=== PATIENT | male | born 1940 | race Caucasian/White ===

== ENCOUNTER 2020-08-31 02:44 | Outpatient (CLI) | payer MEDICARE, SELFPAY ==
[2020-08-31 18:02] LABS: SARS-CoV-2 RNA PCR Negative
== END 2020-08-31 02:45 | disposition home or self-care (01) ==
LOC: ANHCOVIDDT 02:44
PROVIDERS: PCP Family Medicine; Visit Provider Internal Medicine Gastroenterology
DX: Z01.812 Encounter for preprocedural laboratory examination (principal); Z20.828 Contact with and (suspected) exposure to other viral communicable diseases
CPT/HCPCS: 87635; C9803; U0003

== ENCOUNTER 2020-09-03 01:45 | Day surgery (SDC) | payer MEDICARE, SELFPAY ==
[2020-08-23 10:20] VITALS: BMI 25.9
[2020-09-03 12:02] VITALS: BP 140/75; PULSE 56; RESP 14; TEMP 36.3; O2SAT 98
[2020-09-03] MEDS: LACTATED RINGERS 1,000 ML 150 ML IV CONT (12:04)
--- NOTE | 2020-09-03 12:15 | PM.IMHP ---
H&P: HPI History of Present Illness Date/Time: 09/03/20 12:15 Chief complaint: constipation Narrative: Reason for visit is colonoscopy. This very pleasant gentleman is being evaluated at the request of the primary physician. Impression: Her very pleasant gentleman with a history adenomatous colon polyps. He has been having loose stools. Underlying inflammatory neoplastic disease should be excluded. This may be functional in nature. HTN. HLD. GERD with occasional breakthrough symptoms. Skin cancer. Recommendation: Colonoscopy. History: This very pleasant gentleman is here for colonoscopy. He has a history adenomatous colon polyps and reflux disease. He has occasional breakthrough symptoms of reflux. He has been having loose stools pre may go 2-3 times per day and occasionally that currently. Hematochezia, melena acholic stools at night. He does not report any significant weight loss. Complains of diffuse abdominal tenderness. He is here for colonoscopy to assess for inflammatory neoplastic disease. Physical examination: General: very pleasant patient in no acute distress. HEENT: Head was normocephalic sclerae is clear mouth without masses neck was supple. Heart: Rate rhythm regular without S3 or S4. Lungs: CTA. Abdomen: Soft with no guarding or rigidity. Bowel sounds were active. Neurologic: Cranial nerves 2 through 12 intact. No focal defects. No clonus. Musculoskeletal system: Revealed no joint tenderness or swelling no muscle atrophy. Extremities: Reveal no significant edema. Skin: Warm and dry with normal turgor. Mental status: intact. Patient is alert and oriented. Review of Systems Review of Systems: All systems reviewed & are unremarkable except as noted in HPI and below PMFSH Past Medical History Medical History (Updated 05/10/20 @ 10:02 by Trung Claros DO) SANCHEZ (dyspnea on exertion) Dyslipidemia Dysuria History of hydrocele Right axillary hidradenitis Syncope and collapse Ventricular ectopics Surgical History Surgical History History of back surgery History of carpal tunnel release Family History Family History Mother Hypertension Family history of arthritis Father Family history of dementia Malignant neoplasm of prostate Social History Social History Smoking status: Never smoker Second hand tobacco smoke exposure: No Smoking end date: 11/02/1961 Alcohol intake: current Substance use: never Substance use type: does not use Living arrangements: with family Gender identity (if verbalized by the patient): Male Spiritual care concerns: No Meds Home Medications and Allergies Home Medications Medication Instructions Recorded Confirmed Type acetaminophen 650 mg 650 mg PO BID 11/08/19 08/23/20 History tablet,extended release avanafil 200 mg tablet 200 mg PO WEEKLY 11/08/19 08/23/20 History cholecalciferol (vitamin D3) 125 125 mcg PO DAILY 11/08/19 08/23/20 History mcg (5,000 unit) capsule esomeprazole magnesium 20 mg 20 mg PO DAILY 11/08/19 08/23/20 History capsule,delayed release multivitamin 1 tablet PO DAILY 11/08/19 08/23/20 History omega-3 fatty acids 1,000 mg 1,000 mg PO BID 11/08/19 08/23/20 History capsule quinapril 20 mg tablet 20 mg PO BID 11/08/19 08/23/20 History Bystolic 20 mg PO DAILY 08/23/20 08/23/20 History L. gasseri-B. bifidum-B longum 1 cap PO DAILY 08/23/20 08/23/20 History [Probiotic Colon Care] amlodipine 2.5 mg PO DAILY 08/23/20 08/23/20 History coenzyme Q10 200 mg PO DAILY 08/23/20 08/23/20 History cyclosporine [Restasis] 1 drp OPHTHALMIC (EYE) BID 08/23/20 08/23/20 History fluticasone propionate 1 spray NASAL BID 08/23/20 08/23/20 History vit C-vit Q-drhozq-dfy-om-3 1 cap PO DAILY 08/23/20 08/23/20 History [Ocuvite]
--- NOTE | 2020-09-03 12:20 | WPDANESEPPF ---
Anes - Initial Pre Proc Eval Procedure: Operation Date: 09/03/20 13:30 Proposed Procedures p Colonoscopy - Erick Santos DO Date/Time: 09/03/20 12:20 Surgeon: Erick Santos DO Pre Op Diagnosis: constipation Patient Data Age: 79 Gender: M Height: 1.68 m Weight: 71.7 kg Last Vital Signs Temp 36.3 C L 09/03/20 12:02 Pulse 56 L 09/03/20 12:02 Resp 14 09/03/20 12:02 BP 140/75 09/03/20 12:02 Pulse Ox 98 09/03/20 12:02 Allergies Allergy/AdvReac Type Severity Reaction Status Date / Time Bumble Bee Allergy Intermediate Swelling Uncoded 08/23/20 10:13 Home Medications Medication Instructions Recorded Confirmed Type acetaminophen 650 mg 650 mg PO BID 11/08/19 08/23/20 History tablet,extended release avanafil 200 mg tablet 200 mg PO WEEKLY 11/08/19 08/23/20 History cholecalciferol (vitamin D3) 125 125 mcg PO DAILY 11/08/19 08/23/20 History mcg (5,000 unit) capsule esomeprazole magnesium 20 mg 20 mg PO DAILY 11/08/19 08/23/20 History capsule,delayed release multivitamin 1 tablet PO DAILY 11/08/19 08/23/20 History omega-3 fatty acids 1,000 mg 1,000 mg PO BID 11/08/19 08/23/20 History capsule quinapril 20 mg tablet 20 mg PO BID 11/08/19 08/23/20 History Bystolic 20 mg PO DAILY 08/23/20 08/23/20 History L. gasseri-B. bifidum-B longum 1 cap PO DAILY 08/23/20 08/23/20 History [Probiotic Colon Care] amlodipine 2.5 mg PO DAILY 08/23/20 08/23/20 History coenzyme Q10 200 mg PO DAILY 08/23/20 08/23/20 History cyclosporine [Restasis] 1 drp OPHTHALMIC (EYE) BID 08/23/20 08/23/20 History fluticasone propionate 1 spray NASAL BID 08/23/20 08/23/20 History vit C-vit Z-pdrzxe-kgb-om-3 1 cap PO DAILY 08/23/20 08/23/20 History [Ocuvite] Patient hx anesthesia problems: none Family hx anesthesia problems: none PMFSH Past Medical History Medical History (Updated 09/03/20 @ 12:21 by Tej Burnett MD) CKD (chronic kidney disease) stage 3, GFR 30-59 ml/min SANCHEZ (dyspnea on exertion) Dyslipidemia Dysuria History of hydrocele Hypertension Right axillary hidradenitis Syncope and collapse Ventricular ectopics Surgical History Surgical History History of back surgery History of carpal tunnel release Family History Family History Mother Hypertension Family history of arthritis Father Family history of dementia Malignant neoplasm of prostate Social History Social History Smoking status: Never smoker Second hand tobacco smoke exposure: No Smoking end date: 11/02/1961 Alcohol intake: current Substance use: never Substance use type: does not use Living arrangements: with family Gender identity (if verbalized by the patient): Male Spiritual care concerns: No Anes - Eval Final PreProcedure Day of Procedure 09/03/20 12:20 Patient weight: overweight Heart: regular rate and rhythm Lungs: clear to auscultation and normal air movement Airway: Mallampati scale class II Neurological: alert and oriented Last oral intake: >/= 8 hours ASA classification: III Emergent: no Anesthetic plan: proceed Anesthesia type and monitoring: general GIVS Informed Consent: The patient's anesthetic plan and its attendant risks and benefits were discussed with the patient/family/POA. Questions were solicited and answers provided to the satisfaction of the patient/family/POA.
[2020-09-03 13:27] VITALS: BP 99/76; PULSE 58; RESP 18; O2SAT 95
[2020-09-03 13:37] VITALS: BP 112/88; PULSE 59; RESP 23; O2SAT 96
[2020-09-03 13:47] VITALS: BP 103/61; PULSE 55; RESP 18; O2SAT 96
== END 2020-09-03 13:57 | disposition home or self-care (01) ==
PROVIDERS: PCP Family Medicine; Visit Provider Internal Medicine Gastroenterology
PROC: 0DJD8ZZ Inspection of Lower Intestinal Tract, Via Natural or Artificial Opening Endoscopic (ICD-10-PCS; CPT 45378; principal; 2020-09-03 13:30)
DX: R19.4 Change in bowel habit (principal); D12.2 Benign neoplasm of ascending colon; K51.40 Inflammatory polyps of colon without complications; K57.30 Diverticulosis of large intestine without perforation or abscess without bleeding; K21.9 Gastro-esophageal reflux disease without esophagitis; I10 Essential (primary) hypertension; E78.5 Hyperlipidemia, unspecified
CPT/HCPCS: 45380; 88305; J2001; J2370; J2704; J7120

== ENCOUNTER → 2021-06-25 03:28 | Outpatient (CLI) | payer MEDICARE, SELFPAY ==
[2021-06-25 19:42] LABS: SARS-CoV-2 RNA PCR Positive
== END ==
PROVIDERS: PCP Family Medicine; Visit Provider Physician Assistant
DX: R05 Cough (principal); U07.1 COVID-19
CPT/HCPCS: C9803; U0003; U0005

== ENCOUNTER 2022-08-15 10:21 | Outpatient (CLI) | payer MEDICARE, SELFPAY ==
--- NOTE | 2022-08-15 10:32 | ECG_ITS ---
Measurements Intervals [place] Rate: 53 P: 1 MA: 236 QRS: -34 QRSD: 102 T: 52 QT: 423 QTc: 399 Interpretive Statements SINUS BRADYCARDIA WITH FIRST DEGREE AV BLOCK WITH OCCASIONAL ECTOPIC PREMATURE COMPLEXES MARKED LEFT AXIS DEVIATION [QRS AXIS < -30] LEFT VENTRICULAR HYPERTROPHY AND ST-T CHANGE [VOLTAGE CRITERIA PLUS ST/T ABNORMALITY] ABNORMAL ECG NO PREVIOUS ECG AVAILABLE FOR COMPARISON Electronically Signed On 08-15-2022 15:40:29 CDT by Sotero Barreto M.D.
[2022-08-15 10:55] LABS: Prothrombin Time 12.5 Seconds (11.1-14.7)
[2022-08-15 10:56] LABS: Partial Thromboplastin Time 27.9 SECONDS (22.3-36.8)
== END 2022-08-15 10:22 | disposition home or self-care (01) ==
LOC: ANHSURGERY 10:25
PROVIDERS: Anesthesiology; PCP Family Medicine; Visit Provider Urology
DX: Z01.818 Encounter for other preprocedural examination (principal); I12.9 Hypertensive chronic kidney disease with stage 1 through stage 4 chronic kidney disease, or unspecified chronic kidney disease; N18.30 Chronic kidney disease, stage 3 unspecified; R00.1 Bradycardia, unspecified; I44.0 Atrioventricular block, first degree
CPT/HCPCS: 36415; 85610; 85730; 93005

== ENCOUNTER 2022-08-21 00:41 | Day surgery (SDC) | payer MEDICARE, SELFPAY ==
[2022-08-08 13:48] VITALS: BMI 26.3
--- NOTE | 2022-08-08 13:59 | PC.NURSE ---
PRE-OP INSTRUCTIONS, PLEASE READ CAREFULLY Report to the Outpatient Waiting Room, entrance under the green pavilion located off [facility], at time _0600_ on date _08/21/22_. OR Time: _0730_. Time changes happen often and if your time is changed the preop area will call you the afternoon before. - You and your visitor will be asked to self-screen and do not enter if you have any COVID symptoms. - We encourage only one visitor and NO visitors under age 16 are allowed at this time. Your visitor will receive communication by the phone number that is given day of service. - The patient visitor is requested to social distance or may leave the building when not with patient due to restrictions. - A mask is required within the hospital. Patients may have clear liquids (water, carbonated beverages, clear teas, apple juice) until 3 hours prior to surgery (0430 AM) with a maximum of 20 ounces. - No food from midnight until time of surgery Take the following medications with a SIP of water the morning of surgery: _NEBIVOLOL, NASAL SPRAY, TYLENOL IF NEEDED_ Medications to discontinue per ANESTHESIA - _VITAMINS/SUPPLEMENTS 3 DAYS PRIOR TO SURGERY, Date to take last dose 08/17/22_ Please no make-up, nail mohawk, hairspray, perfume, deodorant, or body powder the day of surgery. No jewelry (including any body piercings) or valuables the day of surgery, leave them at home. Please take a shower or bath the night before, or the morning of, surgery with an antibacterial soap. Wear comfortable, loose fitting clothing. Children are encouraged to wear pajamas. - Jewelry must be removed prior to entering the operating room. Rings and piercings that are not removed may be cut off. - The hospital will not accept responsibility for valuables. - Please leave all valuables, including medications, at home the day of surgery. If you are going home after surgery, a licensed local city driver must drive you home. - NO public transportation without another adult. - We recommend that an adult stay with you for 24 hours following discharge. - We also recommend that you do not drive, make important decision, drink alcoholic beverages, or take any drugs that were not prescribed by your health care provider for at least 24 hours after your discharge time. Follow any additional instructions given to you from your surgeon. If you or anyone in your household have experienced Covid symptoms in the past week, please notify your surgeon or the nurse liaison at the phone number below for possible testing. Telephone instructions given to ____PT and asked if any additional questions and then verbalized understanding. Patient advised to call surgeon office or pre surgery nurse liaison [phone] if any additional questions.
--- NOTE | 2022-08-19 07:03 | PM.HPGS ---
History of Present Illness History of Present Illness Consent: Risks, benefits, and alternatives have been discussed and questions answered. Patient agrees to proceed with procedure. Chief complaint: bph Narrative: Mitchell Patel is a 81 year old male Who has been a patient in our practice since September 2001. He has longstanding prostatism that initially responded partially to Avodart. That responses since waned and he has quit taking that medication. We discussed alternative medical options but, instead, he has elected to proceed with a Urollift. We discussed alternative surgical options including TURP, Rezum, laser prostatectomy. He is aware of the risk of a Urolift including, but not limited to, adverse cardiopulmonary events, persistent irritable voiding symptoms, hematuria with a need for a catheter short-term postoperatively. Review of Systems Cardiovascular: Cardiovascular: Denies chest pain, Denies lightheadedness, Denies palpitations and Denies dyspnea Respiratory: Respiratory: Denies dyspnea Gastrointestinal: Gastrointestinal: Denies diarrhea, Denies nausea and Denies vomiting Genitourinary: Genitourinary: Denies hematuria and Denies dysuria Endocrine: Endocrine: Denies palpitations [facility] Past Medical History Medical History BPH (benign prostatic hyperplasia) CKD (chronic kidney disease) stage 3, GFR 30-59 ml/min SANCHEZ (dyspnea on exertion) Dyslipidemia Dysuria GERD (gastroesophageal reflux disease) History of hydrocele Hypertension Overweight (BMI 25.0-29.9) Right axillary hidradenitis Syncope and collapse Ventricular ectopics Surgical History Surgical History History of back surgery History of carpal tunnel release Family History Family History Mother Hypertension Family history of arthritis Father Family history of dementia Malignant neoplasm of prostate Social History Social History Smoking status: Former smoker Tobacco type: cigarettes Second hand tobacco smoke exposure: No Smoking end date: 11/02/1961 Additional smoking assessment comments: PT STATES SMOKED VERY LITTLE IN 20'S FOR ABOUT A YR QUIT 1961 Alcohol intake: current Alcohol use details: STATES 1-2 DRINKS/MONTH Substance use: never Substance use type: does not use Gender identity (if verbalized by the patient): Male Spiritual care concerns: No Meds Home Medications and Allergies Home Medications Medication Instructions Recorded Confirmed Type acetaminophen 650 mg 650 mg PO BID 11/08/19 08/08/22 History tablet,extended release avanafil 200 mg tablet (Stendra) 200 mg PO WEEKLY 11/08/19 08/08/22 History cholecalciferol (vitamin D3) 125 125 mcg PO DAILY 11/08/19 08/08/22 History mcg (5,000 unit) capsule multivitamin 1 tablet PO DAILY 11/08/19 08/08/22 History quinapril 20 mg tablet 20 mg PO BID 11/08/19 08/08/22 History fluticasone propionate 50 1 spray intranasal BID #16 grams 09/19/21 08/08/22 Rx mcg/actuation nasal spray,suspension vit C 50 mg-E 15 unit-zinc cit 4.5 2 tablet PO DAILY 02/20/22 08/08/22 History mg-lutein 2.5 mg-zeaxan chew tablet (QuVIS) calcium polycarbophil 625 mg 1,250 mg PO DAILY 05/08/22 08/08/22 History tablet (FiberCon) nebivolol 20 mg tablet See Rx Instructions .Route 06/18/22 08/08/22 Rx .COMPLEX #90 tabs amlodipine 2.5 mg tablet See Rx Instructions .Route 07/02/22 08/08/22 Rx .COMPLEX #90 tabs omega-3 fatty acids 1,000 mg 2,000 mg PO BID 07/30/22 08/08/22 History capsule (Fish Oil Concentrate) Balance Of Nature See Rx Instructions .Route .COMPLEX 08/08/22 08/08/22 History evolocumab 140 mg/mL subcutaneous 140 mg subcut .every 2 weeks #2 mL 08/08/22 08/08/22 Rx pen injector (Pamela Dale) sim
--- NOTE | 2022-08-20 10:23 | WPDANESEPPF ---
Anes - Initial Pre Proc Eval Procedure: Operation Date: 08/21/22 07:30 Proposed Procedures p Urolift - Jeremías Ortiz MD Date/Time: 08/20/22 10:23 Surgeon: Jeremías Ortiz MD Pre Op Diagnosis: bph Patient Data Age: 81 Gender: M Height: 1.68 m Weight: 74.09 kg Allergies Allergy/AdvReac Type Severity Reaction Status Date / Time Bumble Bee Allergy Intermediate Swelling Uncoded 08/21/22 06:15 Home Medications Medication Instructions Recorded Confirmed Type acetaminophen 650 mg 650 mg PO BID 11/08/19 08/21/22 History tablet,extended release avanafil 200 mg tablet (Stendra) 200 mg PO WEEKLY 11/08/19 08/08/22 History cholecalciferol (vitamin D3) 125 125 mcg PO DAILY 11/08/19 08/21/22 History mcg (5,000 unit) capsule multivitamin 1 tablet PO DAILY 11/08/19 08/21/22 History quinapril 20 mg tablet 20 mg PO BID 11/08/19 08/08/22 History fluticasone propionate 50 1 spray intranasal BID #16 grams 09/19/21 08/08/22 Rx mcg/actuation nasal spray,suspension vit C 50 mg-E 15 unit-zinc cit 4.5 2 tablet PO DAILY 02/20/22 08/21/22 History mg-lutein 2.5 mg-zeaxan chew tablet (AppShare Eye LiB) calcium polycarbophil 625 mg 1,250 mg PO DAILY 05/08/22 08/08/22 History tablet (FiberCon) nebivolol 20 mg tablet See Rx Instructions .Route 06/18/22 08/08/22 Rx .COMPLEX #90 tabs amlodipine 2.5 mg tablet See Rx Instructions .Route 07/02/22 08/08/22 Rx .COMPLEX #90 tabs omega-3 fatty acids 1,000 mg 2,000 mg PO BID 07/30/22 08/21/22 History capsule (Fish Oil Concentrate) Balance Of Nature See Rx Instructions .Route .COMPLEX 08/08/22 08/21/22 History evolocumab 140 mg/mL subcutaneous 140 mg subcut .every 2 weeks #2 mL 08/08/22 08/08/22 Rx pen injector (Repatha SureClick) simethicone 125 mg capsule (Gas-X 125 mg PO BID 08/08/22 08/08/22 History Extra Strength) pen needle, diabetic 29 gauge x #100 ea 08/12/22 Rx 1/2 (Sure-Fine Pen [place]) evolocumab 140 mg/mL subcutaneous See Rx Instructions .Route .COMPLEX 08/21/22 08/21/22 History syringe (Repatha Syringe) Patient hx anesthesia problems: none Family hx anesthesia problems: none Results Review: All pre-operative results and documents have been reviewed as part of the pre-operative evaluation. [facility] Past Medical History Medical History BPH (benign prostatic hyperplasia) CKD (chronic kidney disease) stage 3, GFR 30-59 ml/min SANCHEZ (dyspnea on exertion) Dyslipidemia Dysuria GERD (gastroesophageal reflux disease) History of hydrocele Hypertension Overweight (BMI 25.0-29.9) Right axillary hidradenitis Syncope and collapse Ventricular ectopics Surgical History Surgical History History of back surgery History of carpal tunnel release Family History Family History Mother Hypertension Family history of arthritis Father Family history of dementia Malignant neoplasm of prostate Social History Social History Smoking status: Former smoker Tobacco type: cigarettes Second hand tobacco smoke exposure: No Smoking end date: 11/02/1961 Additional smoking assessment comments: PT STATES SMOKED VERY LITTLE IN 20'S FOR ABOUT A YR QUIT 1961 Alcohol intake: current Alcohol use details: STATES 1-2 DRINKS/MONTH Substance use: never Substance use type: does not use Living arrangements: with family Gender identity (if verbalized by the patient): Male Spiritual care concerns: No Anes - Eval Final PreProcedure Day of Procedure 08/20/22 10:23 Patient weight: overweight Heart: regular rate and rhythm Lungs: clear to auscultation Airway: Mallampati scale class II Neurological: alert and oriented Last oral intake: >/= 8 hours ASA classification: III Emergent: no Anestheti
[2022-08-21] VITALS (10 sets, daily range): BP systolic 131–169; BP diastolic 66–85; PULSE 56–68; RESP 12–20; TEMP 36.4; O2SAT 98–100; BMI 25.7
--- NOTE | 2022-08-21 06:39 | WPDHPUPDATE1 ---
History and Physical Update Update Date/Time: 08/21/22 06:39 History and Physical has been reviewed, including an updated exam of the patient. There are NO changes in the patient's condition. Risks, benefits, and alternatives have been discussed and questions answered. Patient agrees to proceed with procedure.
[2022-08-21] MEDS: LACTATED RINGERS 1,000 ML 30 ML IV CONT (06:40)
[2022-08-21] MEDS: ceFAZolin 2 GM/D5W 50 ML 2 GM/50 ML BAG IVPB (07:27)
[2022-08-21] MEDS: LIDOCAINE HCL 2% GEL UROJET 10 ML PKG MUCOUS MEM (07:31)
--- NOTE | 2022-08-21 07:49 | P.OP_ITS ---
Procedure Note - Detailed Date of Procedure 08/21/22 Pre-op Diagnosis BPH Post-op Diagnosis Same Procedure Performed UroLift Surgeon Jeremías Ortiz MD Description of Procedure The patient was prepped and draped in a routine fashion after the uneventful induction of a general LMA anesthetic. A 20F cystoscope was inserted into the bladder. The cystoscopy bridge was replaced with a UroLift delivery device. The first treatment site was the patient's right side approximately 1.5cm distal to the bladder neck. The distal tip of the delivery device was then angled laterally approximately 20 degrees at this position to compress the lateral lobe. The trigger was pulled, thereby deploying a needle containing the implant through the prostate. The needle was then retracted, allowing one end of the implant to be delivered to the capsular surface of the prostate. The implant was then tensioned to assure capsular seating and removal of slack monofilament. The device was then angled back toward midline and slowly advanced proximally (typically 3 to 4 mm) until cystoscopic verification of the monofilament being centered in the delivery bay. The urethral end piece was then affixed to the monofilament thereby tailoring the size of the implant. Excess filament was then severed. The delivery device was then re-advanced into the bladder. The delivery device was then replaced with cystoscope and bridge and the implant location and opening effect was confirmed cystoscopically. The same procedure was then repeated on the left side, and two additional implants were delivered just proximal to the verumontanum, again one on right and one on left side of the prostate, following the same technique. Cystoscopy then revealed a persistent area of obstruction, and two more implants were delivered in the mid- prostate. Therefore, a total of 6 implants were delivered. A final cystoscopy was conducted first to inspect the location and state of each implant and second, to confirm the presence of a continuous anterior channel was present through the prostatic urethra with irrigation flow turned off. The bladder was then filled with 150 cc irrigation fluid to assist the patient in void trial after the procedure, and all instruments were removed. At this point the cystoscope was removed and the patient was taken to the PACU in good condition. Pathology None sent Complications No immediate complications Condition Stable Disposition PACU
[2022-08-21] MEDS: oxyCODONE HCL (*CRX) 5 MG TAB IR PO (09:00)
== END 2022-08-21 10:57 | disposition home or self-care (01) ==
PROVIDERS: PCP Family Medicine; Visit Provider Urology
PROC: 0T7D8DZ Dilation of Urethra with Intraluminal Device, Via Natural or Artificial Opening Endoscopic (ICD-10-PCS; CPT 52441; principal; 2022-08-21 07:30)
DX: N40.1 Benign prostatic hyperplasia with lower urinary tract symptoms (principal); I12.9 Hypertensive chronic kidney disease with stage 1 through stage 4 chronic kidney disease, or unspecified chronic kidney disease; N18.30 Chronic kidney disease, stage 3 unspecified; E78.5 Hyperlipidemia, unspecified; K21.9 Gastro-esophageal reflux disease without esophagitis
CPT/HCPCS: C9740; 36415; 85610; 85730; 93005; A9270; J0690; J1100; J2405; J2704; J3010; J7120; L8699

== ENCOUNTER 2023-02-05 10:15 | Outpatient (CLI) | payer MEDICARE, SELFPAY ==
--- NOTE | 2023-02-05 11:30 | NEURO_ITS ---
Impression: # Complains of numbness of left hand. # Severe left Carpal Tunnel Syndrome. # No ulnar neuropathy. # Abnormal needle exam of left APB with denervation potentials. Motor Nerve Conduction Upper Extremities Median Nerve Conduction Velocity (m/sec) Terminal Latency (msec) Response Voltage(mV) Elbow-Wrist Wrist Elbow Wrist Right Left 51 7.3 1 1 Ulnar Nerve Conduction Velocity (m/sec) Terminal Latency (msec) Response Voltage(mV) Above Elbow Below Elbow Wrist Above Elbow Below Elbow Wrist Right Left 54 2.6 4 5 F-Wave Latency Median (ms) Ulnar (ms) Right Left 33.6 31.2 Sensory Nerve Conduction Upper Extremities Median Nerve Stimulation Terminal Latency (msec) Wrist/Digit Response Voltage (uV) Wrist Right Left 9.6/8.3 25/17 Ulnar Nerve Stimulation Terminal Latency (msec) Wrist/Digit Response Voltage (uV) Wrist Right Left 3.3 4.2 Radial Nerve Terminal Latency (msec) Response Voltage(mV) Right Left 2.3 16 Left Right Muscles Examined Fibrillation Fasciculation Scarcity Voltage Duration Left Right Left Right Left Right Left Right Left Right Deltoid Biceps X Brachioradialis Triceps X Pronator Teres X Ext Indicis X Ext Digitorum X Abd Poll Brev Decreased Increased >12ms X 1st Dorsal Interosseus X Abd Dig Min MTDD
== END 2023-02-05 10:16 | disposition home or self-care (01) ==
PROVIDERS: PCP Family Medicine; Visit Provider Orthopaedic Surgery
DX: G56.02 Carpal tunnel syndrome, left upper limb (principal)
CPT/HCPCS: 95886; 95909

== ENCOUNTER 2023-03-25 08:38 | Outpatient (CLI) | payer MEDICARE, SELFPAY ==
--- NOTE | 2023-03-25 | ECG_ITS ---
Measurements Intervals [place] Rate: 54 P: 40 [place]: 288 QRS: -43 QRSD: 116 T: 40 QT: 417 QTc: 396 Interpretive Statements SINUS BRADYCARDIA WITH FIRST DEGREE AV BLOCK LEFT AXIS DEVIATION INTRAVENTRICULAR CONDUCTION DELAY VOLTAGE CRITERIA FOR LVH BORDERLINE ECG COMPARED TO ECG 08/15/2022 10:45:05 INTRAVENTRICULAR CONDUCTION DELAY NOW PRESENT Electronically Signed On 03-25-2023 9:09:34 CDT by Trung Claros D.O.
== END 2023-03-25 08:39 | disposition home or self-care (01) ==
LOC: ANHCARD 08:41
PROVIDERS: PCP Family Medicine; Visit Provider Orthopaedic Surgery
DX: Z01.810 Encounter for preprocedural cardiovascular examination (principal); R00.1 Bradycardia, unspecified; I44.0 Atrioventricular block, first degree
CPT/HCPCS: 93005

== ENCOUNTER 2023-08-07 11:27 | Outpatient (CLI) | payer MEDICARE, SELFPAY ==
[2023-08-07 12:00] LABS: Hematocrit 36.2 % (42.0-52.0); Hemoglobin 12.5 g/dL (14.0-18.0); Mean Corpuscular HGB Conc 34.5 g/dl (32-36); Mean Corpuscular Hemoglobin 33.7 pg (26-34); Mean Corpuscular Volume 97.6 fl (80-100); Mean Platelet Volume 8.6 fl (7.4-10.4); Platelet Count Result 418 k/mm3 (150-375); Red Blood Count 3.71 M/mm3 (4.6-6.20); Red Cell Distribution Width 12.5 % (11.5-14.5); White Blood Count 5.3 K/mm3 (4.5-10.0)
[2023-08-07 12:12] LABS: Cholesterol 204 mg/dL (0-200); HDL Direct 46 mg/dL; Triglycerides 214 mg/dL (<150)
[2023-08-07 12:14] LABS: Alanine Aminotransferase 27 U/L (6-50); Albumin Level 4.2 g/dL (3.5-5.1); Alkaline Phosphatase 99 U/L (38-126); Anion Gap 9 mmol/L (8-16); Aspartate Amino Transferase 33 U/L (17-59); Bilirubin,Total 0.6 mg/dL (0.2-1.3); Blood Urea Nitrogen 19 mg/dL (9-20); CRP < 0.5 mg/dL (<1.0); Calcium 9.1 mg/dL (8.4-10.2); Carbon Dioxide 22 mmol/L (22-30); Chloride 94 mmol/L (98-107); Estimated Glomerular Filt Rate > 60; Glucose 98 mg/dL (65-110); Potassium 4.4 mmol/L (3.4-5.0); Sodium 125 mmol/L (137-145)
[2023-08-07 12:22] LABS: LDL Cholesterol Direct 111 mg/dL
[2023-08-07 13:02] LABS: Erythrocyte Sedimentation Rate 19 mm/hr (0-20)
== END 2023-08-07 11:28 | disposition home or self-care (01) ==
PROVIDERS: Internal Medicine Cardiovascular Disease; PCP Family Medicine; Visit Provider Nurse Practitioner Family
DX: E78.5 Hyperlipidemia, unspecified (principal); K92.89 Other specified diseases of the digestive system
CPT/HCPCS: 36415; 80053; 80061; 85027; 85652; 86140

== ENCOUNTER 2023-08-17 09:12 | Outpatient (CLI) | payer MEDICARE, SELFPAY ==
[2023-08-24 00:27] LABS: Calprotectin, Stool 87 mcg/g
[2023-08-25 18:22] LABS: Pancreatic Elastase, Stool 376 mcg/g
== END 2023-08-17 09:13 | disposition home or self-care (01) ==
LOC: ANHLAB 09:13
PROVIDERS: PCP Family Medicine; Visit Provider Nurse Practitioner Family
DX: K92.89 Other specified diseases of the digestive system (principal)
CPT/HCPCS: 82653; 83993

== ENCOUNTER 2023-08-20 09:27 | Outpatient (CLI) | payer MEDICARE, SELFPAY ==
--- NOTE | ~2023-08-20 | CT_ITS ---
CT of the Abdomen and Pelvis: Indication: Abdominal pain Technique: 2.5 mm axial scans were obtained through the abdomen and pelvis following intravenous adm inistration of 100 cc of Omnipaque 350. Dose reduction technique was used on this scan by utilizing a utomated exposure control and iterative reconstruction technique. The dose-length product (DLP) was 4 50.55 mGy-cm. Findings: Scans through the lung bases demonstrate moderate to large hiatal hernia. The liver, spleen, pancreas, gallbladder, adrenals and kidneys are within normal limits. There are at herosclerotic calcifications of the aorta. No lymphadenopathy. No bowel obstruction or bowel wall thickening. There is sigmoid diverticulosis. Normal appendix. Images through the pelvis were performed. Urinary bladder unremarkable. Prostate gland is significant ly enlarged. No ascites. Impression: Moderate to large hiatal hernia. Enlarged prostate gland. Reviewed, dictated and finalized at [facility]. Impression: Moderate to large hiatal hernia. Enlarged prostate gland.
== END 2023-08-20 09:28 | disposition home or self-care (01) ==
PROVIDERS: PCP Family Medicine; Visit Provider Nurse Practitioner Family
DX: R10.30 Lower abdominal pain, unspecified (principal); K44.9 Diaphragmatic hernia without obstruction or gangrene; N40.0 Benign prostatic hyperplasia without lower urinary tract symptoms
CPT/HCPCS: 74177; Q9967

== ENCOUNTER 2024-01-29 08:19 | Outpatient (CLI) | payer MEDICARE, SELFPAY ==
--- NOTE | ~2024-01-29 | XR_ITS ---
EXAMINATION: XR UGIAC w barium swallow DATE: 01/29/2024 09:09 INDICATION: Other specified diseases of the digestive system. Gastroesophageal reflux disease. TECHNIQUE: The patient drank thick barium, gas-producing crystals, and thin barium. Fluoroscopy of th e esophagus, stomach, and proximal small bowel was performed. Fluoroscopy exposure time was 0.6 minut es. The total number of images was 252. Total dose-area product was 2.175 Gy-cm^2. COMPARISON: CT abdomen and pelvis 08/20/2023 FINDINGS: There is no mass or stricture of the esophagus. There is decreased primary and secondary es ophageal peristalsis. Abnormal tertiary waves were noted. There is a large sliding hiatal hernia. The stomach and proximal small bowel show normal folding patterns. IMPRESSION: 1. Large sliding hiatal hernia. 2. Moderate esophageal dysmotility. Reviewed, dictated and finalized at location A.
== END 2024-01-29 08:20 | disposition home or self-care (01) ==
LOC: ANHIMG 08:21
PROVIDERS: PCP Family Medicine; Visit Provider Nurse Practitioner Family
DX: K92.89 Other specified diseases of the digestive system (principal); K22.4 Dyskinesia of esophagus; K44.9 Diaphragmatic hernia without obstruction or gangrene; K21.9 Gastro-esophageal reflux disease without esophagitis
CPT/HCPCS: 74246

== ENCOUNTER 2024-02-02 15:17 | Outpatient (CLI) | payer MEDICARE, SELFPAY ==
[2024-02-05 11:58] LABS: Immunoglobulin A 166 mg/dL (70-320); TTG IGA AB <1.0 U/mL (<15.0)
== END 2024-02-02 15:18 | disposition home or self-care (01) ==
LOC: ANHLAB 15:22
PROVIDERS: PCP Family Medicine; Visit Provider Nurse Practitioner Family
DX: R10.30 Lower abdominal pain, unspecified (principal); K92.89 Other specified diseases of the digestive system; R19.8 Other specified symptoms and signs involving the digestive system and abdomen; K58.9 Irritable bowel syndrome, unspecified; K58.2 Mixed irritable bowel syndrome; D64.9 Anemia, unspecified
CPT/HCPCS: 36415; 82784; 86003; 86364

== ENCOUNTER 2024-02-18 12:30 | Outpatient (CLI) | payer MEDICARE, SELFPAY ==
--- NOTE | 2024-02-18 12:35 | ECHO_ITS ---
Patient Info Name: Mitchell Patel Age: 83 years : 1940 Gender: Male Ht: 67 in Wt: 159 lbs BSA: 1.86 m2 HR: 54 bpm BP: 149 / 75 mmHg Heart Rhythm: Sinus Rhythm Technical Quality: Good Exam Date: 02/18/2024 1:05 PM Exam Location: Echo Lab Patient Status: Outpatient Admit Date: 02/18/2024 Staff Ordering Physician: Trung Claros DO Relations Specialist: Christy Murcia RDCS Attending Provider: Trung Claros DO Referring Physician: Harlan RSUHING; Exam Type: CA echo doppler color flow Study Info Indications - other forms of dyspnea Complete two-dimensional, color flow and Doppler transthoracic echocardiogram is performed. Summary 1. Complete two-dimensional, color flow and Doppler transthoracic echocardiogram is performed. 2. Left ventricular chamber dimension is normal. 3. Ventricular septum is sigmoid shaped. No LVOT obstruction. 4. Left ventricular systolic function is normal, estimated at 65-70%. 5. The left ventricular diastolic function is grade I diastolic dysfunction. 6. E/e' 18 is elevated. 7. There is trace aortic valve regurgitation. 8. The mitral valve has mildly calcified leaflets. 9. There is mild to moderate mitral valve regurgitation. 10. There is mild tricuspid valve regurgitation. 11. No pulmonary hypertension, estimated pulmonary arterial systolic pressure is 22 mmHg. 12. There is trace pulmonic regurgitation. Left Ventricle E/e' 18 is elevated. Ventricular septum is sigmoid shaped. No LVOT obstruction. Left ventricular chamber dimension is normal. Left ventricular systolic function is normal, estimated at 65-70%. The left ventricular diastolic function is grade I diastolic dysfunction. Right Ventricle Right ventricular systolic function is normal and with normal TAPSE 3.0 cm. Right ventricular chamber dimension is normal. Left Atria Left atrial chamber dimension is normal. Right Atria Right atrial chamber dimension is normal. Aortic Valve The aortic valve is trileaflet. There is no aortic valve stenosis. There is trace aortic valve regurgitation. Pulmonic Valve There is trace pulmonic regurgitation. Mitral Valve The mitral valve has mildly calcified leaflets. There is no mitral valve stenosis. There is mild to moderate mitral valve regurgitation. Tricuspid Valve There is mild tricuspid valve regurgitation. No pulmonary hypertension, estimated pulmonary arterial systolic pressure is 22 mmHg. Pericardium/Pleural There is no pericardial effusion. Inferior Vena Cava Normal inferior vena cava with >50% collapse upon inspiration consistent with normal right atrial pressure, 5 mmHg. Aorta The aortic root size at the sinus of Valsalva is normal. Left Ventricular Outflow Tract Name Value Normal LVOT 2D LVOT Diameter 2.1 cm LVOT Doppler LVOT Peak Gradient 3 mmHg LVOT Mean Gradient 2 mmHg LVOT VTI 24 cm LVOT VTI/AV VTI Ratio 0.7 LVOT Stroke Volume 87 ml LVOT CO 4.4 l/mi
== END 2024-02-18 12:31 | disposition home or self-care (01) ==
PROVIDERS: PCP Family Medicine; Visit Provider Internal Medicine Cardiovascular Disease
DX: R06.09 Other forms of dyspnea (principal); I08.3 Combined rheumatic disorders of mitral, aortic and tricuspid valves
CPT/HCPCS: 93306; C8929

== ENCOUNTER 2024-08-23 10:47 | Outpatient (CLI) | payer MEDICARE, SELFPAY ==
--- NOTE | ~2024-08-23 | XR_ITS ---
3 VIEWS LUMBAR SPINE Ordering provider: Mitchell Harvey MD History: . M47.817 - Spondylosis without myelopathy or radiculopathy... . Comparison: None. FINDINGS: VERTEBRAL BODIES:Spondylolisthesis at the level of L4-L5. Retrolisthesis at the level of L2-L3. No v isible fracture.. Postoperative changes seen posteriorly. Kyphosis seen in the thoracolumbar area. De xtroscoliosis. Chronic loss of volume of T11 is noted. DISK SPACES: Narrowing of all the disc spaces in the lumbar area. Multilevel facet joint disease. SOFT TISSUES: Aortic atherosclerotic changes. IMPRESSION: No acute osseous abnormality lumbar spine. Anterolisthesis at the level of L4-L5. Retrolisthesis at the level of L2-L3. Multilevel degenerative disc disease. Dextroscoliosis. Reviewed, dictated and finalized at location A.
== END 2024-08-23 10:48 | disposition home or self-care (01) ==
LOC: ANHIMG 10:52
PROVIDERS: PCP Family Medicine; Visit Provider Anesthesiology Pain Medicine
DX: M43.16 Spondylolisthesis, lumbar region (principal); M51.369 Other intervertebral disc degeneration, lumbar region without mention of lumbar back pain or lower extremity pain; M41.84 Other forms of scoliosis, thoracic region; M96.1 Postlaminectomy syndrome, not elsewhere classified; M47.817 Spondylosis without myelopathy or radiculopathy, lumbosacral region
CPT/HCPCS: 72114

== ENCOUNTER 2024-09-15 09:24 | Outpatient (CLI) | payer MEDICARE, SELFPAY ==
--- NOTE | ~2024-09-15 | MR_ITS ---
MRI of the lumbar spine Clinical History: Postlaminectomy syndrome Technique: Axial T2-weighted images, and sagittal T1-weighted, T2-weighted, and STIR images were acqu ired. Findings: No acute fracture identified. Probable minimal chronic loss of height of L2. There is 3 mm retrolisthesis of L1 over L2. There is 5 mm retrolisthesis of L2 over L3. There is 4 mm retrolisthesi s of L3 over L4. There is 6 mm anterolisthesis of L4 over L5. There is posterior fusion along the spi nous processes from L3 through L5. At L1-L2, there is severe degenerative disc narrowing. There is mild disc bulge with moderate facet a rthropathy. There is minimal central canal stenosis. There is severe left neural foraminal narrowing, and moderate right neural foraminal narrowing. At L2-L3, there is severe degenerative disc narrowing. There is disc bulge and severe facet arthropat hy, with mild to moderate central canal stenosis and bilateral lateral recess stenosis. There is hunter re bilateral neural foraminal conference. At L3-L4, there is advanced degenerative disc narrowing. There is disc bulge with advanced facet arth ropathy. No chio central canal stenosis. There is severe bilateral neural foraminal compromise. At L4-L5, there is severe facet joint hypertrophy and fusion, resulting in moderate to severe spinal canal stenosis/thecal sac compression. There is advanced right neural foraminal narrowing. Left neura l foramen preserved. At L5-S1, there is advanced degenerative disc narrowing. There is disc bulge with advanced facet arth ropathy. No central canal stenosis. There is severe bilateral neural foraminal conference. Paravertebral soft tissues are unremarkable aside from postoperative change. Impression: Severe degenerative spondylosis throughout the lumbar spine, as detailed above. Multiple grade 1 listheses in the lumbar spine, as detailed above. Prior posterior fusion, from L3 through L5, along the spinous processes, as detailed above. Reviewed, dictated and finalized at location M. ATOR STARTER Impression: Severe degenerative spondylosis throughout the lumbar spine, as detailed above. Multiple grade 1 listheses in the lumbar spine, as detailed above. Prior posterior fusion, from L3 through L5, along the spinous processes, as det katy above.
== END 2024-09-15 09:25 | disposition home or self-care (01) ==
PROVIDERS: PCP Family Medicine; Visit Provider Anesthesiology Pain Medicine
DX: M47.817 Spondylosis without myelopathy or radiculopathy, lumbosacral region (principal); M96.1 Postlaminectomy syndrome, not elsewhere classified; M47.896 Other spondylosis, lumbar region
CPT/HCPCS: 72148

== ENCOUNTER 2025-02-28 09:54 | Day surgery (SDC) | payer MEDICARE, SELFPAY ==
[2025-02-07 14:01] VITALS: BMI 27.3
--- NOTE | ~2025-02-28 | XR_ITS ---
EXAMINATION: XR fluoroscopy no charge DATE: 02/28/2025 10:55 CDT INDICATION: DIAG/PROG WILL L1,L2,L3 MEDIAL BRANCH NERVE BLK . TECHNIQUE: 11 fluoroscopic images and 4 cine clips of the lumbar spine were obtained during diagnosti c/prognostic bilateral L1, L2, L3 medial branch nerve block, performed by Mitchell Harvey MD. I was not present during the procedure. Fluoroscopy exposure time was 22 seconds. Air Kerma 17.78 mGy. COMPARISON: None FINDINGS/IMPRESSION: Fluoroscopic documentation of diagnostic/prognostic bilateral L1, L2, L3 medial branch nerve block. P lease refer to the operative note for complete procedural details . Reviewed, dictated and finalized at location K.
--- NOTE | 2025-02-28 10:05 | PM.HPGS ---
History of Present Illness History of Present Illness Consent: Risks, benefits, and alternatives have been discussed and questions answered. Patient agrees to proceed with procedure. Chief complaint: Spondylosis w/o Myelopathy/Radiculopathy Narrative: Mitchell Patel is a 84 year old male with chronic, recalcitrant and disabling bilateral lumbar back pain secondary to degenerative spondylosis with failure to respond to aggressive conservative measures including PT, oral and topical analgesics, opioid and nonopioid analgesics, rest, time and activity/behavioral modification over the past 1-2 years who presents for diagnostic/prognostic medial branch blocks of the bilateral L1, L2, L3 medial branches/dorsal ramus(# 1) addressing the bilateral L2-3, L3-4 facet joints under fluoroscopic guidance and with contrast control. Review of Systems Review of Systems: Patient denies any new infectious, allergic, cardiopulmonary, neurologic or constitutional symptoms or changes in activity tolerance or exercise capacity including new or progressive SOB/SANCHEZ, peripheral edema, productive cough, dysuria, nausea/vomiting, diarrhea, weight change, fevers/chills/night sweats, new or progressive neurologic deficit, cognitive or mood changes since last seen, except as documented in the HPI. All systems reviewed & are unremarkable except as noted in HPI and below PMFSH Past Medical History Medical History Enlarged prostate Constipation IBS (irritable bowel syndrome) Lower abdominal pain Anemia Gas bloat syndrome GERD (gastroesophageal reflux disease) Overweight (BMI 25.0-29.9) BPH (benign prostatic hyperplasia) CKD (chronic kidney disease) stage 3, GFR 30-59 ml/min Hypertension History of hydrocele SANCHEZ (dyspnea on exertion) Dyslipidemia Dysuria Right axillary hidradenitis Syncope and collapse Ventricular ectopics Surgical History Surgical History History of carpal tunnel release History of back surgery Family History Family History Mother Hypertension Family history of arthritis Father Family history of dementia Malignant neoplasm of prostate Social History Social History Smoking status: Never smoker Tobacco type: cigarettes Second hand tobacco smoke exposure: No Smoking end date: 11/02/1961 Additional smoking assessment comments: PT STATES SMOKED VERY LITTLE IN 20'S FOR ABOUT A YR QUIT 1961 Alcohol intake: current Drinks per week: 0 Alcohol use details: ONE DRINK PER MONTH Substance use: never Substance use type: does not use Lack of Transportation: No Lack of Food: Never True Current Housing: I Have Housing Concerned About Future Housing: No Difficulty Paying Gas/Electric Bills: No Difficulty Paying for Meds: No Currently Unemployed: No Education: Master's Degree or Higher Living arrangements: with family Occupation/Education: retired Gender identity (if verbalized by the patient): Male Spiritual care concerns: No Meds Home Medications and Allergies Home Medications ?Medication ?Instructions ?Recorded ?Confirmed ?Type acetaminophen 650 mg 650 mg PO BID 11/08/19 02/07/25 History tablet,extended release avanafil 200 mg tablet (Stendra) 200 mg PO WEEKLY 11/08/19 02/07/25 History multivitamin 1 tablet PO DAILY 11/08/19 02/07/25 History fluticasone propionate 50 1 spray intranasal BID #16 grams 09/19/21 02/07/25 Rx mcg/actuation nasal spray,suspension omega-3 fatty acids 1,000 mg 2,000 mg PO BID 07/30/22 02/07/25 History capsule (Fish Oil Concentrate) Balance Of Nature See Rx Instructions .Route .COMPLEX 08/08/22 02/07/25 History esomeprazole magnesium 40 mg See Rx Instructions .Route 04/14/24 02/07/25 Rx capsule,delayed release .COMPLEX #90 caps evolocumab 140 mg/mL subcutaneous See Rx Instructions .Route 06/02/24 02/07/25 Rx pen injector (Pamela Dale) .COMPLEX #6 mL calcium phosphate-vitamin D3 250 2 tablet PO DAILY 06/09/24 02/07/25 History mg calcium-250 unit chewable tablet hydralazine 25 mg tablet See Rx Instructions .Route 09/12/24 02/07/25 Rx .COMPLEX #180 tabs magnesium aspart,citrate,oxide mg PO .qd 12/15/24 12/19/24 History psyllium husk 0.52 gram capsule 0.52 g PO DAILY 12/15/24 02/07/25 History lisinopril 20 mg tablet See Rx Instructions .Route 12/30/24 02/07/25 Rx .COMPLEX #180 tabs amlodipine 5 mg tablet See Rx Instructions .Route 01/16/25 02/07/25 Rx .COMPLEX #90 tabs nebivolol 20 mg tablet See Rx Instructions .Route 02/06/25 02/07/25 Rx .COMPLEX #90 tabs sodium chloride 1,000 mg soluble See Rx Instructions .Route 02/06/25 02/07/25 Rx tablet .COMPLEX #60 tabs Allergies Allergy/AdvReac Type Severity Reaction Status Date / Time bee venom protein (honey bee) AdvReac Severe Swelling Verified 02/07/25 13:57 Exam Narrative: The patient's physical exam is essentially unchanged from prior examination on 01/16/2025. Specifically, patient demonstrates normal lung capacity, tidal volume and respiratory rate without wheezes, crackles, rales or rubs. Heart rate and rhythm are regular without murmurs, gallops or rubs. No JVD. Pulses 2+ globally without increasing peripheral edema. AAOx3 with no evidence of confusion, intoxication or altered mental state, NC/AT without acute distress or altered consciousness. Speech, cognition, mood, insight and judgment at baseline and within normal limits. Assessment and Plan Assessment and plan (1) Lumbosacral spondylosis: Code(s): M47.817 - Spondylosis without myelopathy or radiculopathy, lumbosacral region Status: Acute Assessment and Plan: Proceed as planned with diagnostic/prognostic medial branch blocks of the bilateral L1, L2, L3 medial branches/dorsal ramus(# 1) addressing the bilateral L2-3, L3-4 facet joints under fluoroscopic guidance and with contrast control. (2) Dorsalgia: Code(s): M54.9 - Dorsalgia, unspecified Status: Acute (3) Chronic pain: Code(s): G89.29 - Other chronic pain Status: Acute
--- NOTE | 2025-02-28 10:08 | W.PM.PROC2 ---
Procedure Note - Detailed Date of Procedure 02/28/25 Pre-op Diagnosis Spondylosis w/o Myelopathy/Radiculopathy Post-op Diagnosis Same Procedure Performed Diagnostic bilateral Lumbar Medial Branch Blocks at L1, L2, L3 Treating the bilateral L2-3, L3-4 Facet Joints Under Fluoroscopic Guidance and with Contrast Control. (4 levels blocked). Surgeon Mitchell Harvey MD Ship/Rec/Doc Control None. Anesthesia Local Description of Procedure INFORMED CONSENT: Risks, benefits and alternatives to the procedure were discussed in detail with the patient who expressed explicit understanding and consent to proceed. Patient was informed verbally and in written form regarding the risks associated with the procedure including the low risk of serious infection, bleeding/bruising, allergic reaction, nerve or organ injury, paralysis, procedural site pain or discomfort, worsening pain and/or mobility, failure to treat and/or disfigurement. The patient expressed explicit understanding and consent to proceed. All materials required for the procedure were available prior to procedure start. Site and side were marked prior to procedure and confirmed in the presence of the patient. PROCEDURE IN DETAIL: The patient was brought to the procedural suite and placed in the prone position. Patient was made comfortable with use of pillows under the head/chest, hips and ankles. Skin overlying the injection site on the affected side(s) was prepared broadly with ChloraPrep applicator and draped in a sterile manner. Aseptic technique was used throughout. The endplates of the vertebral bodies at the site(s) of interest were aligned in the AP view. Ipsilateral oblique angulation was utilized to optimize visualization of the intersection between the superior articulating process and transverse process at each target site. Local anesthesia was established by infiltration with approximately 5 mL of 1% lidocaine via a 1-1/2 inch 27-gauge needle. A 25-gauge 3.5 inch Quincke spinal needle was advanced until the needle tip contacted periosteum at the target site, right L1. Lateral view was utilized to confirm the appropriate placement of the needle tip just anterior to the facet line and superior to the pedicle. In the Lateral view, 0.25 mL of Omnipaque 300 contrast medium was injected after negative aspiration for CSF, blood or other bodily fluid, showing appropriate extra-articular spread of contrast without evidence of intravascular, foraminal or intrathecal placement. A 0.5 mL solution of 0.5% PF bupivacaine was injected after negative repeat aspiration. Appropriate spread of the injectate was confirmed with washout of previously injected contrast. No parasthesias were elicited. Needle was removed completely intact without difficulty. The same exact procedure was repeated for all remaining levels on the ipsilateral side, right L2, L3 medial branches, modified as necessary to accommodate for the new target location with identical findings and results and no evidence of complication. The same exact procedure was repeated for all remaining levels on the contralateral side, left L1, L2, L3 medial branches, modified as necessary to accommodate for the new target location with identical findings and results and no evidence of complication. Images were saved and documented in the patient chart. Patient's skin was cleaned and sterile bandage applied. The patient tolerated the procedure well. The patient was transported to the recovery area in stable condition where they were observed for an appropriate amount of time prior to discharge, without evidence of complication. Patient was instructed on the appropriate completion of a pain diary over the next 12-24 hours. The patient was instructed to avoid excessive activity for the next 48 hours, including climbing and frequent use of stairs. Showers only for 48 hours. They were instructed not to drive or operate heavy machinery for 24 hours. They are to monitor for severe headaches, fevers, chills, night sweats, erythema/swelling at the site or any other signs of infection, bleeding/bruising, bowel or bladder changes as well as new pain, weakness or numbness in the upper or lower extremity. Should they notice these changes, they are instructed to call our office immediately or report directly to the nearest Emergency Department if no answer or if after posted office hours. COMPLICATIONS: None COMMENTS: None CONTRAST WASTED: 28.5mL Omnipaque 300. Complications No immediate complications Condition Stable Disposition Same day [facility] Billing Surgery - Charge Forward: Surgery Billing
--- NOTE | 2025-02-28 10:09 | WPDHPUPDATE1 ---
History and Physical Update Update Date/Time: 02/28/25 10:09 History and Physical has been reviewed, including an updated exam of the patient. There are NO changes in the patient's condition. Risks, benefits, and alternatives have been discussed and questions answered. Patient agrees to proceed with procedure.
[2025-02-28 10:29] VITALS: BP 130/75; PULSE 60; RESP 16; TEMP 36.4; O2SAT 98
[2025-02-28 11:00] VITALS: BP 150/70; PULSE 61; RESP 17; O2SAT 97
[2025-02-28 11:09] VITALS: BP 147/75; PULSE 61; RESP 12; O2SAT 97
[2025-02-28] MEDS: BUPivacaine HCL 0.5% 10 ML AMP INFILTRATE (11:09)
[2025-02-28] MEDS: LIDOCAINE 1% PF INJ 5 ML VIAL INFILTRATE (11:09)
--- OUTSIDE RECORDS SUMMARY | 2025-02-28 11:09 | XMS_ITS | Encounter Summary ---
Author Organization [facility] Address [address] [place] [address] Care Team Providers Care Wireless Telegrapher Name Role Phone Stuart Harrison MD Primary Care Provider [phone] Celi Olea RN Unavailable Unavailable Maribel Benavidez RN Unavailable Unavailable Encounter Details Date Type Department Care Team (Late st Contact Info) Description 11/21/2020 Lab Requisition [facility] [address] [place] [id number] Harsh Traylor MD [address] [place] [address] Social History Tobacco Use Types Packs/Day Years Used Date Smoking Tobacco: Never Smokeless Tobacco: Never Alcohol Use Standard Drinks/Week Comments Yes 0 (1 standard drink = 0.6 oz pur e alcohol) on occasion Sex and Gender Information Value Date Recorded Sex Assigned at Not on file Legal Sex Male 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 Gender Identity Not on file Sexual Orientation Not on file documented as of this encounter Plan of Treatment Not on file documented as of this encounter Procedures Procedure Name Priority Date/Time Associated Diagnosis Comments DERMATOPATHOLOGY Routine 11/20/2020 12:0 0 AM ASSEMBLY ROOM SUPERVISOR documented in this encounter Results * DERMATOPATHOLOGY (11/20/2020 12:00 AM ASSEMBLY ROOM SUPERVISOR) Case Report Dermatopathology Report Case: [id number] Authorizing Provider: Harsh Traylor MD Collected: 11/20/2020 12:00 AM Ordering Location: [facility] Received: 11/21/2020 02:26 PM Pathologist: Alexus Renee MD Specimen: Skin, right neck behind earlobe 12:13 PM [facility] Final Diagnosis Specimen A. SKIN, right neck behind earlobe: BENIGN VERRUCOUS KERATOSIS, INFLAMED (L82.1) 12:13 PM [facility] Clinical History R/O BCC. 12:13 PM [facility] Gross Description Specimen A: Received is one formalin filled container labeled with the patient's name and designated right neck behind earlobe. The specimen consists of a shave biopsy measuring [id number]. Jar 0. 12:13 PM [facility] Microscopic Description Specimen A. SKIN, right neck behind earlobe: Sections show hyperkeratosis, papillomatosis, hypergranulosis, and acanthosis. Inflammatory cells are present within the dermis. These histological findings can be seen in a verruca vulgaris or a seborrheic keratosis. 12:13 PM [facility] Disclaimer An external and internal positive and negative controls are appropriate for the histochemical, immunohistochemical and immunofluorescence stain(s) in this case (if any), except where stated explicitly. The performance characteristics of the stain(s) cited in this report were developed and its performance characteristic determined by the Dermatopathology Laboratory at [facility], directed by Dr. Germain Morales. These tests need not be, and therefore are not, approved by the [place] Food and Drug Administration. The tests are used for clinical purposes. Billing Codes Specimen Charges Stain Charges 78958 1 12:13 PM [facility] Embedded Images 12:13 PM [facility] Pathology/Cytolog y TISSUE SPECIMEN FROM SKIN / Unknown 11/20/2020 11/21/2020 2:26 PM ASSEMBLY ROOM SUPERVISOR Harsh Traylor MD LAB - PATHOLOGY/CYTOLOGY ORD ERABLES Final Result DERMATOPATHOLOGY LABORATORY [facility] - Department of Dermatology [facility] Medicine [address] [place] [address], [address] [phone] documented in this encounter Visit Diagnoses Not on filedocumented in this encounter Additional Health Concerns Infection Onset Date Last Indicated Resolved Time 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
--- OUTSIDE RECORDS SUMMARY | 2025-02-28 11:09 | XMS_ITS | Referral Summary ---
Author Organization [facility] Address [address] [place] [address] Care Team Providers Care Wedding Coordinator Name Role Phone Keturah Lozano RN Unavailable Un available Qian Morales MD Primary Care Provider Ian López MD Unavailable Allergies Active Allergy Reactions Criticality Noted Date Comments Colesevelam Hcl Unknown 07/26/2019 Back pain Ezetimibe Other (See comments) Medium 07/26/2019 Back pain Medications BYSTOLIC 20 mg tabletIndicatio ns:hypertension Take 1 tablet (20 mg total) by mouth every morning 8 Active esomeprazole (NexIUM) 10 mg packetIndicatio ns:gerd Take 10 mg by mouth daily with dinner Active fluticasone (FLONASE) 50 mcg/actuation nasal sprayIndication s:Allergic Rhinitis Administer 2 sprays into each nostril every morning 8 Active acetaminophen ER (TYLENOL) 650 mg 8 hr tablet Take 1 tablet (650 mg total) by mouth every 8 (eight) hours as needed for pain Active amLODIPine (NORVASC) 2.5 mg tabletIndicatio ns:hypertension Take 1 tablet (2.5 mg total) by mouth nightly 0 Active multivitamin capsule Take 1 capsule by mouth every morning Active lisinopriL (PRINIVIL,ZESTR IL) 20 mg tablet Take 1 tablet (20 mg total) by mouth 2 (two) times a day Active hydrALAZINE (APRESOLINE) 25 mg tabletIndicatio ns:hypertension Take 1 tablet (25 mg total) by mouth 2 (two) times a day Active evolocumab 140 mg/mL pen injector Inject 1 mL (140 mg total) under the skin every 2 (two) weeks Active sodium chloride 1 gram tablet Take 1 tablet (1 g total) by mouth 2 (two) times a day Active magnesium oxide 400 mg magnesium capsule Take 1 tablet by mouth daily with dinner Active omega-3 fatty acids-fish oil 300-1,000 mg capsule Take 1-2 capsules (1-2 g total) by mouth 2 (two) times a day Takes 2 tablets in AM and 1 tablet in PM Active simethicone 125 mg tablet Take 2 tablets by mouth 2 (two) times a day Active calcium carbonate-vitam in D3 1,250 mg (500 mg elemental)-125 unit per tablet Take 1 tablet by mouth 2 (two) times a day Active polyethylene glycol (MIRALAX) 17 gram packetIndicatio ns:constipation Take 1 packet (17 g total) by mouth daily as needed for constipation Active Active Problems Problem Noted Date Diagnosed Date Elevated PSA 10/14/2024 Gastroesophageal reflux disease 02/24/2024 Diaphragmatic hernia with obstruction, 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 Monthly or less 11/18/2024 Q2: How many drinks containi ng alcohol do you have on a typical day when you are drinking? 1 or 2 11/18/2024 Q3: How often do you have si x or more drinks on one occasion? Never 11/18/2024 Personal Safety Answer Date Recorded Have you ever been in or are you currently in a harmful physical or emotional relationship or is someone making you feel afraid or unsafe? Denies 11/24/2024 Sex and Gender Information Value Date Recorded Sex Assigned at Not on file Legal Sex Male 11:56 AM CDT Gender Identity Not on file Sexual Orientation Not on file Last Filed Vital Signs Vital Sign Reading Time Taken Comments Blood Pressure 146/67 11/24/2024 11:15 AM BRAKE ASSEMBLER Pulse 53 11/24/2024 11:30 AM BRAKE ASSEMBLER Temperature 36.6 C (97.8 F) 11/24/2024 11:00 AM BRAKE ASSEMBLER Respiratory Rate 26 11/24/2024 11:30 AM BRAKE ASSEMBLER Oxygen Saturation 98% 11/24/2024 11:30 AM BRAKE ASSEMBLER Inhaled Oxygen Concentration - - Weight 70 kg (154 lb 5.2 oz) 11/24/2024 8:38 AM BRAKE ASSEMBLER Height 162.6 cm (5' 4 ) 11/24/2024 8:38 AM BRAKE ASSEMBLER Body Mass Index 26.49 11/24/2024 8:38 AM BRAKE ASSEMBLER Plan of Treatment Not on file Insurance [facility] Address: [address] [address] UHC MEDICARE ADVANTAGE [employer] MEDICARE Advance Directives For more information, please contact: [phone] Documents on File Type Date Recorded Patient Grind Operator Expl anation ADVANCE DIRECTIVE 11/24/2024 7:08 AM Power of Facilities Assistant-Medical * Full Code (Latest Code Status on File) Date Activated Date Inactivated Comments 03/29/2024 9:50 AM 03/29/2024 4:07 PM Care Teams Wedding Coordinator Relationship Specialty Start Date End Date Qian Morales MD PCP - General Family Medicine 03/21/24 Keturah Lozano, LINA Registered Nurse 03/10/18 Ian López [place] [address] [place] [address] Consulting Physician Urology 11/16/24
--- OUTSIDE RECORDS SUMMARY | 2025-02-28 11:09 | XMS_ITS | Encounter Summary ---
Author Organization [facility] Address [address] [place] [address] Phone Care Team Providers Care Family Resource Coordinator Name Role Phone Qian Morales MD Primary Care Provider [phone] Reason for Visit * Reason Comments Med Refill Encounter Details Date Type Department Care Team (Late st Contact Info) Description 04/02/2019 Refill [facility] Nephrology and Hypertension [address] [facility], [address] [place] [address] Luis Carlos Vincent MD [address] [facility] [facility] [place] [address] Social History Tobacco Use Types Packs/Day Years Used Date Smoking Tobacco: Never Alcohol Use Standard Drinks/Week Comments No 0 (1 standard drink = 0.6 oz pur e alcohol) Sex and Gender Information Value Date Recorded Sex Assigned at Not on file Legal Sex Male 7:37 AM MST Gender Identity Not on file Sexual Orientation Not on file documented as of this encounter Plan of Treatment Not on file documented as of this encounter Visit Diagnoses Not on filedocumented in this encounter Care Teams Family Resource Coordinator Relationship Specialty Start Date End Date Qian Morales MD [address] [place] [id number] PCP - General Internal Medicine 03/24/22 documented as of this encounter
--- OUTSIDE RECORDS SUMMARY | 2025-02-28 11:09 | XMS_ITS | Clinical Summary ---
Author Organization [facility] Address [address] [place] [address] Care Team Providers Care Auto Technician Mechanic Name Role Phone Keturah Lozano RN Unavailable [...] (01/14/2020): Added automatically from request for surgery [id number] Surgical History Surgery Date Site/Laterality Comments CATARACT EXTRACTION 11/02/2016 - 11/01/2017 Bilateral BLEPHAROPLASTY 11/02/2018 - 11/01/2019 Bilateral Lower eyelids BACK SURGERY 11/02/1995 - 11/01/1996 NASAL SEPTUM SURGERY CARPAL TUNNEL RELEASE Bilateral Medical History Medical History Date Comments History of shingles Cataract, left eye removed Blepharitis HTN (hypertension) CKD (chronic kidney disease) GERD (gastroesophageal reflux disease) OA (osteoarthritis) Skin cancer Elevated PSA Family History Medical History Relation Name Comments No Known Problems Mother Anesthesia problems Neg Hx Relation Name Status Comments Mother Social History Tobacco Use Types Packs/Day Years [...] on file Sexual Orientation Not on file Obstetrics History Last Filed Vital Signs Vital Sign Reading Time Taken Comments Blood Pressure 146/67 11/24/2024 11:15 AM NATURAL HISTORY COLLECTIONS CURATOR Pulse 53 11/24/2024 11:30 AM NATURAL HISTORY COLLECTIONS CURATOR Temperature 36.6 C (97.8 F) 11/24/2024 11:00 AM NATURAL HISTORY COLLECTIONS CURATOR Respiratory Rate 26 11/24/2024 11:30 AM NATURAL HISTORY COLLECTIONS CURATOR Oxygen Saturation 98% 11/24/2024 11:30 AM NATURAL HISTORY COLLECTIONS CURATOR Inhaled Oxygen Concentration - - Weight 70 kg (154 lb 5.2 oz) 11/24/2024 8:38 AM NATURAL HISTORY COLLECTIONS CURATOR Height 162.6 cm (5' 4 ) 11/24/2024 8:38 AM NATURAL HISTORY COLLECTIONS CURATOR Body Mass Index 26.49 11/24/2024 8:38 AM NATURAL HISTORY COLLECTIONS CURATOR Plan of Treatment Health Maintenance Due Date Last Done Comments Depression Screening 1940 Zoster Vaccine (1 of 2) 1990 Well Visit 65+ 2005 DTaP/Tdap/Td Vaccine (1 - Tdap) 10/23/2007 7 Covid-19 Vaccine (3 - 2023-2 5 season) 2024 12/26/2020, 11/27/2020 Influenza Vaccine (#1) 2024 , 10/15/2019, 08/15/2019, Additional history exists Fall Risk Assessment 11/24/2025 11/24/2024 Hepatitis B Screening Completed 05/13/2005 , 11/15/2004, 10/15/2004 Pneumococcal vaccine 65+ Completed 03/24/2016, 10/03 Insurance [facility] MEDICARE UHC MEDICARE ADVANTAGE [facility] MEDIC[facility] Advance Directives For more information, please contact: [phone] Documents on File Type Date Recorded Patient Apparatus Operator Expl anation ADVANCE DIRECTIVE 11/24/2024 7:08 AM Power of [place] [employer] Manager-Medical * Full Code (Latest Code Status on File) Date Activated Date Inactivated Comments 03/29/2024 9:50 AM 03/29/2024 4:07 PM Care Teams Auto Technician Mechanic Relationship Specialty Start Date End Date Qian Morales MD PCP - General Family Medicine 03/21/24 Keturah Lozano, LINA Registered Nurse 03/10/18 Ian López [place] [address] [place] [address] Consulting Physician Urology 11/16/24
--- OUTSIDE RECORDS SUMMARY | 2025-02-28 11:09 | XMS_ITS | Clinical Summary ---
Author Organization [facility] Address [address] [place] [address] Phone Care Team Providers Care Tennis Coach Name Role Phone Qian Morales MD Primary Care Provider [phone] Allergies Active Allergy Reactions Criticality Noted Date Comments Colesevelam Hcl 07/26/2019 Ezetimibe 07/26/2019 Medications Nebivolol HCl (BYSTOLIC) 20 MG tablet 1 tab/cap qday 0 12/15/2016 Active Red Yeast Rice Extract 600 MG capsule 1 tab/cap qday 05/25/2012 Active Ascorbic Acid (VITAMIN C) 500 MG tablet Take 500 mg by mouth Active aspirin 325 MG tablet Take 325 mg by mouth daily Active Dozier-3 Fatty Acids (FISH OIL BURP-LESS) 1200 MG capsule Active esomeprazole (NexIUM) 10 MG packet Take 10 mg by mouth Active Calcium Carbonate-Vitam in D (CALCIUM-VITAMI N D) 500-200 MG-UNIT per tablet Take 1 tablet by mouth Active STENDRA 200 MG tablet 12/07/2019 Active cholecalciferol (D 5000) 125 MCG (5000 UT) capsule Take 5,000 Units by mouth daily Active RESTASIS 0.05 % ophthalmic emulsion 01/31/2020 Active fluorouracil (EFUDEX) 5 % cream 03/13/2020 Active fluticasone (FLONASE) 50 MCG/ACT nasal spray 02/24/2020 Active RA Krill Oil 500 MG capsule Take by mouth daily Active amLODIPine (NORVASC) 2.5 MG tablet Take 2.5 mg by mouth 1 (one) time each day 02/03/2020 Active coenzyme Q-10 200 MG capsule Take by mouth Active fluticasone (FLOVENT DISKUS) 50 MCG/BLIST diskus inhaler Inhale 1-2 puffs 2 times daily Active Multiple Vitamin (Multi-Vitamin) tablet Take by mouth Active fluocinonide (LIDEX) 0.05 % cream 08/13/2021 Active quinapril (ACCUPRIL) 20 MG tablet TAKE 1 TABLET BY MOUTH TWICE DAILY 180 tablet 3 11/20/2021 Active albuterol HFA (PROVENTIL HFA) 108 (90 Base) MCG/ACT inhaler 03/19/2022 Act luther benzonatate (TESSALON) 100 MG capsule TAKE 1 CAPSULE BY MOUTH THREE TIMES A DAY NEEDED FOR COUGH 02/20/2022 Active rosuvastatin (CRESTOR) 5 MG tablet Take 5 mg by mouth 1 (one) time each day 01/23/2022 Active Active Problems Problem Noted Date Diagnosed Date Bilateral rotator cuff arthropathy of shoulder 0 02/10/2022 Bilateral shoulder joint pain 02/10/2022 Carpal tunnel syndrome 03/25/2021 Current tear of medial cartilage AND/OR meniscus of knee 03/25/2021 Osteoarthritis of knee 03/25/2021 Disorder of bursa of shoulder region 03/25/2021 Localized, primary osteoarthritis of the hand Pain in limb 03/25/2021 Spinal stenosis of lumbar region 03/25/2021 Sprain of cruciate ligament of knee 03/25/2021 Other hyperlipidemia 07/29/2015 Overview (01/15/2019): Converted unresolved ICD9, potential mismatch. Hypertensive chronic kidney disease with stage 1 through stage 4 chronic kidney disease, or unspecified chronic kidney disease 07/29/2015 Chronic kidney disease, stage 3 (moderate) 05/25 Essential (primary) hypertension 05/25/2012 Degeneration of lumbar or lumbosacral interverte bral disc 02/04/2012 Immunizations Immunization Administration Dates Next Due Influenza TIV (IM) 11/19/2015,11/20/2014 Influenza, Injectable, Quadrivalent 08/22/2020,1 Pneumococcal Conjugate 13-Valent 03/24/2016 Family History Medical History Relation Comments Malignant neoplastic disease Child Hypertensive disorder Father Hypertensive disorder Mother Kidney disease Neg Hx Kidney stone Neg Hx Relation Status Comments Child Father Mother Social History Tobacco Use Types Packs/Day Years Used Date Smoking Tobacco: Never Smokeless Tobacco: Never Alcohol Use Standard Drinks/Week Comments No 0 (1 standard drink = 0.6 oz pur e alcohol) Sex and Gender Information Value Date Recorded Sex Assigned at Not on file Legal Sex Male 7:37 AM [facility] Gender Identity Not on file Sexual Orientation Not on file Last Filed Vital Signs Vital Sign Reading Time Taken Comments Blood Pressure 142/78 03/24/2022 11:28 AM CDT Pulse - - Temperature 36.1 C (96.9 F) 03/24/2022 11:28 AM CDT Respiratory Rate 18 03/24/2022 11:28 AM CDT Oxygen Saturation - - Inhaled Oxygen Concentration - - Weight 73.9 kg (163 lb) 03/24/2022 11:28 AM CDT Height 165.1 cm (5' 5 ) 03/24/2022 11:28 AM CDT Body Mass Index 27.12 03/24/2022 11:28 AM CDT Plan of Treatment Health Maintenance Due Date Last Done Comments Pneumococcal PPSV23/PCV13 65 + Years / Low and Medium Risk (2 of 3 - PPSV23) 03/24/2017 03/24/2016 COVID-19 Vaccine ( season) 2024, 11/27/2020 Influenza Vaccine (Season Ended) 2025 11/19/19 16, 11/20/2014 Insurance [facility] MEDICARE Care Teams Tennis Coach Relationship Specialty Start Date End Date Qina Morales MD [address] [place] [id number] PCP - General Internal Medicine 03/24/22
--- OUTSIDE RECORDS SUMMARY | 2025-02-28 11:09 | XMS_ITS | Encounter Summary ---
Author Organization [facility] Address [address] [facility] [place] [address] Care Team Providers Care Ordnance Engineering Technician Name Role Phone Stuart Harrison MD Primary Care Provider [phone] Celi Olea RN Unavailable Unavailable Maribel Benavidez RN Unavailable Unavailable Encounter Details Date Type Department Care Team (Late st Contact Info) Description 03/07/2020 Lab Requisition [facility] [address] [facility] [place] [id number] Harsh Traylor MD [address] [place] [address] Social History Tobacco Use Types Packs/Day Years Used Date Smoking Tobacco: Never Smokeless Tobacco: Never Alcohol Use Standard Drinks/Week Comments Yes 0 (1 standard drink = 0.6 oz pur e alcohol) on occasion Sex and Gender Information Value Date Recorded Sex Assigned at Not on file Legal Sex Male 11:30 AM VARNISH MIXER Gender Identity Not on file Sexual Orientation Not on file documented as of this encounter Plan of Treatment Not on file documented as of this encounter Procedures Procedure Name Priority Date/Time Associated Diagnosis Comments DERMATOPATHOLOGY Routine 03/06/2020 12:0 0 AM CDT documented in this encounter Results * DERMATOPATHOLOGY (03/06/2020 12:00 AM CDT) Case Report Dermatopathology Report Case: [id number] Authorizing Provider: Harsh Traylor MD Collected: 03/06/2020 12:00 AM Ordering Location: [facility] Lab Received: 03/07/2020 11:56 AM Pathologist: Kenny Morales MD Specimen: Skin, above right brow 0 2:43 PM CDT DERMATOPATHOLOGY LABORATORY Final Diagnosis Specimen A. SKIN, above right brow: ACTINIC KERATOSIS (L57.0) SOLAR ELASTOSIS (L57.8) DERMAL FIBROSIS (L90.5) (see microscopic description) 0 2:43 PM CDT DERMATOPATHOLOGY LABORATORY Clinical History R/O recurrent Garza's, BCC. 0 2:43 PM CDT DERMATOPATHOLOGY LABORATORY Gross Description Specimen A: Received is one formalin filled container labeled with the patient's name and designated above right brow. The specimen consists of a punch biopsy measuring [id number], bisected. Jar 0. 0 2:43 PM CDT DERMATOPATHOLOGY LABORATORY Microscopic Description Specimen A. SKIN, above right brow: There is focal parakeratosis. The lower half of the epidermis shows disorderly maturation of keratinocytes with nuclear pleomorphism. In the superficial dermis there are fragmented and homogenized elastic fibers. There is focal dermal fibrosis. Additional deeper sections were obtained and reviewed. 0 2:43 PM CDT DERMATOPATHOLOGY LABORATORY Disclaimer An external and internal positive and negative controls are appropriate for the histochemical, immunohistochemical and immunofluorescence stain(s) in this case (if any), except where stated explicitly. The performance characteristics of the stain(s) cited in this report were developed and its performance characteristic determined by the Dermatopathology Laboratory at [facility], directed by Dr. Germain Morales. These tests need not be, and therefore are not, approved by the [place] Food and Drug Administration. The tests are used for clinical purposes. Billing Codes Specimen Charges Stain Charges 59412 1 0 2:43 PM CDT DERMATOPATHOLOGY LABORATORY Embedded Images 0 2:43 PM CDT DERMATOPATHOLOGY LABORATORY Pathology/Cytolog y TISSUE SPECIMEN FROM SKIN / Unknown 03/06/2020 03/07/2020 11:56 AM CDT Harsh Traylor MD LAB - PATHOLOGY/CYTOLOGY ORD ERABLES Final Result DERMATOPATHOLOGY LABORATORY [facility] - Department of Dermatology [address] [facility] [place] [address], [facility] [phone] documented in this encounter Visit Diagnoses Not on filedocumented in this encounter Additional Health Concerns Infection Onset Date Last Indicated Resolved Time MRSA 08/20/2017 08/20/2017 documented as of this encounter Care Teams Ordnance Engineering Technician Relationship Specialty Start Date End Date Stuart Harrison MD PCP - General Family Medicine 01/12/12 Celi Olea, RN Registered Nurse 08/20/17 Maribel Benavidez, LINA Registered Nurse 10/08/17 documented as of this encounter
--- OUTSIDE RECORDS SUMMARY | 2025-02-28 11:09 | XMS_ITS | Continuity of Care Document ---
Author Organization [facility] Address [address] [place] [address] Phone Care Team Providers Care Rigger Apprentice Name Role Phone Ricardo Johnson Unavailable Unavailable Procedures Procedure Date Office/outpatient Visit, Est Corneal Pachymetry Fundus Photography W/ Report Visual Field Examination-Professional Oc Visual Field Examination-Technical Jul- Eye Exam & Treatment Refraction Progressive Lens, Hi Index Lens-Index>1.66Plas;>1.80Glas 0 Anti-reflective Coating Tint Photochromatic, Polycarb 0 Vision Svcs Frames Purchases Frames Deluxe Medical Tax Eye Exam & Treatment No Script Refraction Revise Eyelashes Advance Directives Directive Yes / No Effective Date File Name No Information Encounters Encounter Description Practice Location Reason(s) For Visit Diagnoses Date Provider Providers Copied on Encounter Office/outpat ient Visit, Est [facility], [address], [place], [place], [id number], [place] tel:[phone] [facility] No Information 0 Alex Silva. [address] , [address], [place], [address], [place]. tel:[phone] Referring Provider: Ricardo Daniel, [address], [place], [place], [facility]. tel:[phone] [facility], [address], [place], [place], [id number], [place] tel:[phone] [facility] No Information Oct-0 6-201 0 Alex Silva. [facility] [address] , [address], [place], [place], [facility], [place]. tel:[phone] Referring Provider: Ricardo Daniel, [address], [place], [place], [facility]. tel:[phone] [facility], [address], [place], [place], [id number], [place] tel:[phone] [facility] No Information Jul-2 7-201 0 Alex Silva. [facility] , [address], [place], [place], [facility], [place]. tel:[phone] Referring Provider: Ricardo Daniel, [address], [place], [place], [facility]. tel:[phone] [facility], [address], [place], [place], [id number], [place] tel:[phone] [facility] No Information May-2 2-201 0 Alex Silva. [facility] [address] [address] , [address], [place], [place], [facility], [place]. tel:[phone] [facility], [address], [place], [place], [id number], [place] tel:[phone] [facility] No Information May-2 2-201 0 [facility] [employer] . [address] [facility], [address], [place], [place], [id number], [place]. tel:[phone] Referring Provider: Ricardo Daniel [address] [facility] [address], [place], [address]. tel:[phone] obyer Provider: Evelia Hickey, [address] [place], [address]. tel:[phone] [facility], [address], [place], [place], [id number], tel:[phone] [facility] No Information 0-200 9 Morales OD Erick. [address] [facility] , [address], [place], [address], [place]. tel:[phone] [facility], [address], [place], [place], [id number], [place] tel:[phone] [facility] No Information 8-200 8 Shaffer Amparo. [address] [facility] , [address], [place], [address], . tel:[phone] Family History Family Member Type Diagnosis Age At Onset No Information Payers Payer name Insurance type Covered republican ID Authoriza tion(s) [place] [id number] Social History Type Description Quantity Date Captured Comments Sex Male Smoking Status No Information Chief Complaint And Reason For Visit No Information Reason For Referral Reason For Referral No Information History Of Present Illness Encounter Date Complaint History Of Prese nt Illness No Information Functional Status Date Functional Assessmen t No Information Instructions Date Instruction Additional Infor mation No Information Assessments Type Assessment Date No Information Patient Care Teams Name Effective Dates (start - stop) Status Members No Information
--- OUTSIDE RECORDS SUMMARY | 2025-02-28 11:09 | XMS_ITS | Clinical Summary ---
Author Organization [facility] Address [address], [address] [address] Phone Care Team Providers Care Conference Planner Name Role Phone Erick Santos DO Unavailable [phone] Bree Cisse MD Primary Care Provi janet Allergies Active Allergy Reactions Criticality Noted Date Comments Ezetimibe Other (see Comments) Medium 07/26/2019 Medications Esomeprazole Magnesium (NEXIUM PO) Take by mouth. Active Nebivolol HCl (Bystolic) 20 MG Tablet Take by mouth. Active quinapril (ACCUPRIL) 20 MG Tablet Take 20 mg by mouth every evening. Active Coenzyme Q10 (Co Q10 Maximum Strength) 200 MG Capsule Take by mouth. Active ACETAMINOPHEN PO Take by mouth. Active Multiple Vitamin (Multi-Vitamin) Tablet Take by mouth. Active cycloSPORINE (Restasis) 0.05 % Emulsion Place 1 Drop in affected eye(s) 2 times daily. Active Avanafil (Stendra) 200 MG Tablet Take by mouth. Active amLODIPine (NORVASC) 2.5 MG Tablet Take 2.5 mg by mouth daily. Active amoxicillin (AMOXIL) 500 MG Capsule 10/02/2020 Active Cholecalciferol (VITAMIN D) 125 mcg Capsule Take 5,000 Units by mouth. Active [place]-3 Fatty Acids (Fish Oil Burp-Less) 1200 MG Capsule Active Fluticasone Propionate (FLONASE NA) by Nasal route. Active Active Problems No known active problems Immunizations Immunization Administration Dates Next Due Covid-19, Mrna, Lnp-s, Pf, 30 Mcg/0.3 Ml Dose (P fizer) 12/26/2020,11/27/2020 Family History Medical History Relation Name Comments No Known Problems Brother No Known Problems Father No Known Problems Mother Relation Name Status Comments Brother Father Mother Social History Tobacco Use Types Packs/Day Years Used Date Smoking Tobacco: Never Smokeless Tobacco: Never Tobacco Cessation:Counseling Given: No Alcohol Use Standard Drinks/Week Comments Yes 1 (1 standard drink = 0.6 oz pur e alcohol) one beer a month Sexually Active Control Partners Comments Yes Female Sex and Gender Information Value Date Recorded Sex Assigned at Not on file Legal Sex Male 4:45 PM SENIOR TECHNICAL SUPPORT ENGINEER Gender Identity Not on file Sexual Orientation Not on file Last Filed Vital Signs Vital Sign Reading Time Taken Comments Blood Pressure 138/70 10/04/2020 10:45 AM SENIOR TECHNICAL SUPPORT ENGINEER Pulse 49 10/04/2020 10:45 AM SENIOR TECHNICAL SUPPORT ENGINEER Temperature 36.3 C (97.3 F) 10/04/2020 10:45 AM SENIOR TECHNICAL SUPPORT ENGINEER Respiratory Rate 20 10/04/2020 10:45 AM SENIOR TECHNICAL SUPPORT ENGINEER Oxygen Saturation 98% 10/04/2020 10:45 AM SENIOR TECHNICAL SUPPORT ENGINEER Inhaled Oxygen Concentration - - Weight 74.9 kg (165 lb 3.2 oz) 10/04/2020 10:45 AM SENIOR TECHNICAL SUPPORT ENGINEER Height 167.6 cm (5' 6 ) 10/04/2020 10:45 AM SENIOR TECHNICAL SUPPORT ENGINEER Body Mass Index 26.66 10/04/2020 10:45 AM SENIOR TECHNICAL SUPPORT ENGINEER Plan of Treatment Health Maintenance Due Date Last Done Comments Hepatitis C Virus (HCV) Screening 1940 TdaP Immunization 1940 Zoster Immunization (1 of 2) 1990 Pneumococcal Immunization (50+ years) (2 of 2 - PCV) 10/22/2008 10/22/2007 Respiratory Syncytial Virus (RSV) Immunization (Adult) (1 - 1-dose 75+ series) 2015 Influenza Immunization (#1) 07/03/202408/03, 08/22/2020, 10/15/2019, Additional history exists SARS-COV-2 Immunization ( season) 2024 09/27/2021, 12/26/2020, 11/27/2020 Hepatitis B Immunization Completed 005, 11/15/2004, 10/15/2004 DTaP/Tdap/Td Immunization Discontinued 10/22/2007 Pneumococcal Immunization Combined Discontinued 10/22/2007 Meningococcal Immunization (ACWY) Aged Out No longer eligible based on patient's age to complete this topic Rotavirus Immunization Aged Out No lo nger eligible based on patient's age to complete this topic Insurance MEDICARE C [facility] Care Teams Conference Planner Relationship Specialty Start Date End Date Bree Cisse MD [address] [place] [address] PCP - General Family Medicine 07/24/20 Erick Santos DO Gastroenterology 11/22/15
--- OUTSIDE RECORDS SUMMARY | 2025-02-28 11:09 | XMS_ITS | Clinical Summary ---
Author Organization [facility] Address [address] [facility] [place] [address] Care Team Providers Care Test Specialist Name Role Phone Stuart Harrison MD Primary Care Provider [phone] Celi Olea RN Unavailable Unavailable Maribel Benavidez RN Unavailable Unavailable Source Comments [facility],non-owned Affiliates and Associated Physician Practices is amultiple site organization consisting of ambulatory clinics and hospital sitesin [place], [place], [place] and [place]. This disclosure is being madepursuant to the Care Everywhere program and may not contain all information available regarding this patient. Last updated 18.[facility] Allergies Active Allergy Reactions Criticality Noted Date Comments Colesevelam Hcl Unknown 07/26/2019 Ezetimibe Other Medium 07/26/2019 Medications * Be aware that medications may not be up to date on this document. Alwaysverify current medications with the patient. quinapril (ACCUPRIL) 20 MG tablet Take 20 mg by mouth 2 times daily Active tadalafil (CIALIS) 5 MG tablet Active Red Yeast Rice Extract 600 MG CAPS 1 tablet once daily Active Multiple Vitamins-Minera ls (VISION VITAMINS PO) 1 tablet once daily Active [place]-3 Fatty Acids (FISH OIL BURP-LESS) 1200 MG CAPS Active acetaminophen CR (TYLENOL 8 HOUR) 650 MG tablet 650 mg 2 times daily Active avanafil (STENDRA) 200 MG tablet Take 200 mg by mouth once as needed Active esomeprazole (NEXIUM) 10 MG packet Take 10 mg by mouth as needed Active nebivolol (BYSTOLIC) 20 MG tablet Take 10 mg by mouth once daily Active amLODIPine (NORVASC) 10 MG tablet Take 10 mg by mouth once daily Active fluticasone furoate (FLONASE SENSIMIST) 27.5 MCG/SPRAY nasal sprayIndication s:Seasonal Allergic Rhinitis Monroe 1 spray into each nostril 2 times daily Reasons: Hayfever Active VIT C-CHOLECALCIFER OL-JESSIE HIP PO Take 500 mg by mouth once daily Active Calcium Carb-Cholecalci ferol (CALCIUM 500+D PO) Take 1 tablet by mouth once daily Active PROBIOTIC PRODUCT PO Take 1 tablet by mouth once daily Active ascorbic acid (VITAMIN C) 500 MG tablet Take 500 mg by mouth once daily Active sulfamethoxazol e-trimethoprim (BACTRIM DS; SEPTRA DS) 800-160 MG tablet Take 1 tablet by mouth 2 times daily 14 tablet 10/08/2017 Active docusate sodium (COLACE) 100 MG capsule Take 1 tab po bid for 10 days 20 capsule 10/08/2017 Active HYDROcodone-jeffery taminophen (NORCO) 5-325 MG tablet Take 1 tablet by mouth every 4 hours as needed for Pain 20 tablet 10/08/2017 Active sodium chloride (OCEAN NASAL SPRAY) 0.65 % nasal spray Monroe 3 sprays into each nostril every 3 hours 1 bottles 1 10/08/2017 Active Active Problems Problem Noted Date Diagnosed Date Degeneration of lumbar or lumbosacral interverte bral disc 02/04/2012 Social History Tobacco Use Types Packs/Day Years Used Date Smoking Tobacco: Never Smokeless Tobacco: Never Alcohol Use Standard Drinks/Week Comments Yes 0 (1 standard drink = 0.6 oz pur e alcohol) on occasion Sex and Gender Information Value Date Recorded Sex Assigned at Not on file Legal Sex Male 11:30 AM YARD FOREMAN Gender Identity Not on file Sexual Orientation Not on file Last Filed Vital Signs Vital Sign Reading Time Taken Comments Blood Pressure 143/77 10/08/2017 5:27 PM YARD FOREMAN Pulse 56 10/08/2017 5:27 PM YARD FOREMAN Temperature 36.2 C (97.1 F) 10/08/2017 4:16 PM YARD FOREMAN Respiratory Rate 16 10/08/2017 5:27 PM YARD FOREMAN Oxygen Saturation 98% 10/08/2017 5:27 PM YARD FOREMAN Inhaled Oxygen Concentration 40% 10/08/2017 1 :38 PM YARD FOREMAN Weight 74.8 kg (165 lb) 02/18/2021 12:19 PM CDT Height 170.2 cm (5' 7 ) 02/18/2021 12:19 PM CDT Body Mass Index 25.84 02/18/2021 12:19 PM CDT Plan of Treatment Health Maintenance Due Date Last Done Comments DTAP/TDAP/TD VACCINES (1 - Tdap) 1959 PNEUMOCOCCAL VACCINE 50+ (1 of 1 - PCV) 1990 ZOSTER VACCINE (1 of 2) 1990 Respiratory Syncytial Virus (RSV) Vaccine Pt: or over 60 yrs (1 - 1-dose 75+ series) 2015 COVID-19 VACCINE (3 - season) 2024 12/26/2020, 11/27/2020 DEPRESSION SCREENING 11/02/2024 INFLUENZA VACCINE (Season Ended) 2025 08/22/2020, 08/15/2019, 11/19/2015, Additional history exists HEPATITIS B VACCINE Aged Out No longe r eligible based on patient's age to complete this topic HIB VACCINE Aged Out No longer eligi ble based on patient's age to complete this topic HPV VACCINE Aged Out No longer eligi ble based on patient's age to complete this topic MENINGOCOCCAL (Group B) VACCINE SHARED DECISION-MAKING Aged Out No longer eligible based on patient's age to complete this topic MENINGOCOCCAL GROUPS A/C/Y/W VACCINE Aged Out No longer eligible based on patient's age to complete this topic Additional Health Concerns Infection Onset Date Last Indicated MRSA 08/20/2017 08/20/2017 Insurance [facility] MANAGED MEDICARE ADV [facility] MANAGED MEDICARE ADV Care Teams Test Specialist Relationship Specialty Start Date End Date Stuart Harrison MD PCP - General Family Medicine 01/12/12 Celi Olea RN Registered Nurse 08/20/17 Maribel Benavidez, RN Registered Nurse 10/08/17
[2025-02-28 11:14] VITALS: BP 134/82; PULSE 58; RESP 16; O2SAT 99
== END 2025-02-28 11:28 | disposition home or self-care (01) ==
PROVIDERS: PCP Family Medicine; Visit Provider Anesthesiology Pain Medicine
PROC: (CPT 64493; principal; 2025-02-28 11:45)
DX: M47.817 Spondylosis without myelopathy or radiculopathy, lumbosacral region (principal); G89.29 Other chronic pain
CPT/HCPCS: 64493 ×2; 64494 ×2; 64495 ×2; 99199

== ENCOUNTER 2025-03-21 21:29 | Emergency (ER) | payer MEDICARE, SELFPAY ==
--- NOTE | ~2025-03-21 | CT_ITS ---
EXAMINATION: CTA abd aorta runoff DATE: 03/21/2025 23:18 INDICATION: Prostate artery embolization, bilateral lower extremity tingling TECHNIQUE: Computed tomographic angiography (CTA) of the abdominal, pelvis, and both lower extremitie s was performed with 150 mL Omnipaque-350 intravenous contrast. Automated exposure control and iterat luther reconstruction technique were employed. The dose-length product was 894.22 mGy-cm. COMPARISON: CT abdomen pelvis 08/20/2023. FINDINGS: ABDOMINAL AORTA AND ITS BRANCHES: The celiac axis is patent. Heavy calcified plaque at the origin of the SMA, causing severe stenosis, SMA otherwise patent. Ample portal vein contrast enhancement. Moderate left and severe right renal ar melissa origin stenoses from calcified plaque. No aneurysm or dissection. PELVIC VASCULATURE: No aneurysm or severe stenosis. RIGHT LOWER EXTREMITY VASCULATURE: Calcified atherosclerotic plaque causing mild and moderate degrees of stenosis in the proximal lower extremity arteries. The trifurcation is patent. Severe short segment stenoses in the right posterior tibial artery. There is 3 vessel flow below the level of the ankle. LEFT LOWER EXTREMITY VASCULATURE: Calcified atherosclerotic plaque causing mild and moderate degrees of stenosis in the proximal arteri es. The anterior tibial artery origin is patent. There is severe stenosis at the bifurcation of the p eroneal and posterior tibial arteries, with absence/inconsistent flow in the posterior tibial artery and reconstitution just above the level of the ankle. There is 3 vessel flow below the level of the a nkle. ADDITIONAL FINDINGS: Cardiomegaly, with coronary artery calcifications. Large hiatal hernia. Mild distal esophageal and ga stric wall edema. Simple right upper pole cyst. Multiple bilateral renal hypodensities that are too s mall to characterize but most likely represent cysts. Hyperemia of the gallbladder wall. No biliary d uct dilation. No bowel dilation. Normal bowel wall enhancement. Normal appendix. Diverticulosis witho ut diverticulitis. Urinary bladder wall thickening in a partially distended urinary bladder. Marked p rostatomegaly. Multiple prostate surgical clips or implants. 7 mm hyperdensity in the upper right pro state gland, new since the prior study. Small right hydrocele. Spinous process fusion hardware at L4- 5 and L5-S1. Small fat-containing uncomplicated bilateral inguinal hernias. Multilevel degenerative d isc disease and grade 1 listheses in the lumbar spine. IMPRESSION: No aortic dissection or aneurysm. 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 Severe right renal artery origin stenosis Severe short segment stenoses in the right posterior tibial artery. Severe atherosclerotic stenosis at the bifurcation of the left peroneal and posterior tibial arteries , with slow flow/occlusion of the left peroneal artery, and distal reconstitution just above the leve l of the ankle. Large hiatal hernia with mild esophagitis/gastritis. Hyperemia of the gallbladder wall, correlate for symptoms of right upper quadrant pain and with bilia ry labs. Bladder wall thickening, may be secondary to cystitis or chronic outlet obstruction. Marked prostatomegaly. 7 mm hyperdensity in the upper right prostate gland, may represent normal hype rdense tissue or a small blush of contrast extravasation post embolization. Reviewed, dictated and finalized at location K. IMPRESSION: No aortic dissection or aneurysm. 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 Severe right renal artery origin stenosis Severe short segment stenoses in the right posterior tibial artery. Severe atherosclerotic stenosis at the bifurcation of the left peroneal and pos terior tibial arteries, with slow flow/occlusion of the left peroneal artery, a nd distal reconstitution just above the level of the ankle. Large hiatal hernia with mild esophagitis/gastritis. Hyperemia of the gallbladder wall, correlate for symptoms of right upper quadra nt pain and with biliary labs. Bladder wall thickening, may be secondary to cystitis or chronic outlet obstruc tion. Marked prostatomegaly. 7 mm hyperdensity in the upper right prostate gland, may represent normal hyperdense tissue or a small blush of contrast extravasation post embolization.
--- OUTSIDE RECORDS SUMMARY | 2025-03-21 21:32 | XMS_ITS | Clinical Summary ---
Author Organization [facility] Address [address], [address] [address] Phone Care Team Providers Care Bill Checker Name Role Phone Erick Santos DO Unavailable [phone] Bree Cisse MD Primary Care Provi janet [...] Capsule Take 5,000 Units by mouth. Active [place]-3 Fatty Acids (Fish Oil Burp-Less) 1200 MG [...] on file Legal Sex Male 4:45 PM PATTERNMAKER METAL BENCH Gender Identity Not on file Sexual Orientation Not on file Last Filed Vital Signs Vital Sign Reading Time Taken Comments Blood Pressure 138/70 10/04/2020 10:45 AM PATTERNMAKER METAL BENCH Pulse 49 10/04/2020 10:45 AM PATTERNMAKER METAL BENCH Temperature 36.3 C (97.3 F) 10/04/2020 10:45 AM PATTERNMAKER METAL BENCH Respiratory Rate 20 10/04/2020 10:45 AM PATTERNMAKER METAL BENCH Oxygen Saturation 98% 10/04/2020 10:45 AM PATTERNMAKER METAL BENCH Inhaled Oxygen Concentration - - Weight 74.9 kg (165 lb 3.2 oz) 10/04/2020 10:45 AM PATTERNMAKER METAL BENCH Height 167.6 cm (5' 6 ) 10/04/2020 10:45 AM PATTERNMAKER METAL BENCH Body Mass Index 26.66 10/04/2020 10:45 AM PATTERNMAKER METAL BENCH Plan of Treatment Health Maintenance Due Date [...] to complete this topic Insurance MEDICARE C [facility] Care Teams Bill Checker Relationship Specialty Start Date End Date Bree Cisse MD [address] [place] [address] PCP - General Family Medicine 07/24/20 Erick Santos DO Gastroenterology 11/22/15
--- OUTSIDE RECORDS SUMMARY | 2025-03-21 21:32 | XMS_ITS | Clinical Summary ---
Author Organization [facility] Address [address] [place] [address] Care Team Providers Care Printing Agent Name Role Phone Keturah Lozano RN Unavailable [...] (01/14/2020): Added automatically from request for surgery [id number] Surgical History Surgery Date Site/Laterality Comments CATARACT [...] Comments Blood Pressure 146/67 11/24/2024 11:15 AM VIAL GAUGER Pulse 53 11/24/2024 11:30 AM VIAL GAUGER Temperature 36.6 C (97.8 F) 11/24/2024 11:00 AM VIAL GAUGER Respiratory Rate 26 11/24/2024 11:30 AM VIAL GAUGER Oxygen Saturation 98% 11/24/2024 11:30 AM VIAL GAUGER Inhaled Oxygen Concentration - - Weight 70 kg (154 lb 5.2 oz) 11/24/2024 8:38 AM VIAL GAUGER Height 162.6 cm (5' 4 ) 11/24/2024 8:38 AM VIAL GAUGER Body Mass Index 26.49 11/24/2024 8:38 AM VIAL GAUGER Plan of Treatment Health Maintenance Due Date Last Done Comments Depression Screening 1940 Zoster Vaccine (1 of 2) 1990 Well Visit 65+ 2005 DTaP/Tdap/Td Vaccine (1 - Tdap) 10/23/2007 7 Covid-19 Vaccine (3 - 2023-2 5 season) 2024 12/26/2020, 11/27/2020 Influenza Vaccine (Season Ended) 2025 08/22/2020, 10/15/2019, 08/15/2019, Additional history exists Fall Risk Assessment 11/24/2025 11/24/2024 Hepatitis B Screening Completed 05/13/2005 , 11/15/2004, 10/15/2004 Pneumococcal vaccine 65+ Completed 03/24/2016, 10/03 Insurance [facility] MEDICARE [facility] MED[facility] Address: [address] [place] [address] UHC MEDICARE [facility] Address: [address] [address] [place] [address] [facility] MEDICARE [facility] MEDIC[facility] Address: [address] [place] [address] Advance Directives For more information, please contact: [phone] Documents on File Type Date Recorded Patient Instrument Specialist Expl anation ADVANCE DIRECTIVE 11/24/2024 7:08 AM Power of Lead Etl Developer-Medical * Full Code (Latest Code Status on File) Date Activated Date Inactivated Comments 03/29/2024 9:50 AM 03/29/2024 4:07 PM Care Teams Printing Agent Relationship Specialty Start Date End Date Qian Morales MD PCP - General Family Medicine 03/21/24 Keturah Lozano, LINA Registered Nurse 03/10/18 Ian López [place] [address] [place] [address] Consulting Physician Urology 11/16/24
--- OUTSIDE RECORDS SUMMARY | 2025-03-21 21:32 | XMS_ITS | Encounter Summary ---
Author Organization [facility] Address [address] [facility] [place] [address] Care Team Providers Care Engineering Production Liaison Name Role Phone Stuart Harrison MD Primary Care Provider [phone] Celi Olea RN Unavailable Unavailable Maribel Benavidez RN Unavailable Unavailable Encounter Details Date Type Department Care Team (Late st Contact Info) Description 03/07/2020 Lab Requisition [facility] [address] [facility] [place] [id number] Harsh Traylor MD [address] [place] [address] Social History Tobacco Use Types Packs/Day Years Used Date Smoking Tobacco: Never Smokeless Tobacco: Never Alcohol Use Standard Drinks/Week Comments Yes 0 (1 standard drink = 0.6 oz pur e alcohol) on occasion Sex and Gender Information Value Date Recorded Sex Assigned at Not on file Legal Sex Male 11:30 AM LOG DATA TECHNICIAN Gender Identity Not on file Sexual Orientation Not on file documented as of this encounter Plan of Treatment Not on file documented as of this encounter Procedures Procedure Name Priority Date/Time Associated Diagnosis Comments DERMATOPATHOLOGY Routine 03/06/2020 12:0 0 AM CDT documented in this encounter Results * DERMATOPATHOLOGY (03/06/2020 12:00 AM CDT) Case Report Dermatopathology Report Case: [id number] Authorizing Provider: Harsh Traylor MD Collected: 03/06/2020 12:00 AM Ordering Location: [facility] Lab Received: 03/07/2020 11:56 AM Pathologist: Kenny Morales MD Specimen: Skin, above right brow 0 2:43 PM CDT DERMATOPATHOLOGY LABORATORY Final Diagnosis Specimen A. SKIN, above right brow: ACTINIC KERATOSIS (L57.0) SOLAR ELASTOSIS (L57.8) DERMAL FIBROSIS (L90.5) (see microscopic description) 0 2:43 PM CDT DERMATOPATHOLOGY LABORATORY at 1443 CDT Clinical History R/O recurrent Garza's, BCC. 0 2:43 PM CDT DERMATOPATHOLOGY LABORATORY Gross Description Specimen A: Received is one formalin filled container labeled with the patient's name and designated above right brow. The specimen consists of a punch biopsy measuring [id number], bisected. Jar 0. 0 2:43 PM CDT [...] characteristic determined by the Dermatopathology Laboratory at [facility], directed by Dr. Germain Morales. These tests need not be, and therefore are not, approved by the [place] Food and Drug Administration. The tests are used for clinical purposes. Billing Codes Specimen Charges Stain Charges 92353 1 0 2:43 PM CDT DERMATOPATHOLOGY LABORATORY Embedded Images 0 2:43 PM CDT DERMATOPATHOLOGY LABORATORY Pathology/Cytolog y TISSUE SPECIMEN FROM SKIN / Unknown 03/06/2020 03/07/2020 11:56 AM CDT Harsh Traylor MD LAB - PATHOLOGY/CYTOLOGY ORD ERABLES Final Result DERMATOPATHOLOGY LABORATORY [facility] - Department of Dermatology [address] [facility] [address] [facility] [place] [address], [facility] [phone] documented in this encounter Visit Diagnoses Not on filedocumented in this encounter Additional Health Concerns Infection Onset Date Last Indicated Resolved Time MRSA 08/20/2017 08/20/2017 documented as of this encounter Care Teams Engineering Production Liaison Relationship Specialty Start Date End Date Stuart Harrison MD PCP - General Family Medicine 01/12/12 Celi Olea, RN Registered Nurse 08/20/17 Maribel Benavidez, LINA Registered Nurse 10/08/17 documented as of this encounter
--- OUTSIDE RECORDS SUMMARY | 2025-03-21 21:32 | XMS_ITS | Encounter Summary ---
Author Organization [facility] Address [address] [facility] [place] [address] Care Team Providers Care Svp Group Director Name Role Phone Stuart Harrison MD Primary Care Provider [phone] Celi Olea RN Unavailable Unavailable Maribel Benavidez RN Unavailable Unavailable Encounter Details Date Type Department Care Team (Late st Contact Info) Description 11/21/2020 Lab Requisition [facility] [address] [facility] [place] [phone] Harsh Traylor MD [address] [place] [address] Social History Tobacco Use Types Packs/Day Years Used Date Smoking Tobacco: Never Smokeless Tobacco: Never Alcohol Use Standard Drinks/Week Comments Yes 0 (1 standard drink = 0.6 oz pur e alcohol) on occasion Sex and Gender Information Value Date Recorded Sex Assigned at Not on file Legal Sex Male 11:30 AM MDS RN Gender Identity Not on file Sexual Orientation Not on file documented as of this encounter Plan of Treatment Not on file documented as of this encounter Procedures Procedure Name Priority Date/Time Associated Diagnosis Comments DERMATOPATHOLOGY Routine 11/20/2020 12:0 0 AM MDS RN documented in this encounter Results * DERMATOPATHOLOGY (11/20/2020 12:00 AM MDS RN) Case Report Dermatopathology Report Case: [id number] Authorizing Provider: Harsh Traylor MD Collected: 11/20/2020 12:00 AM Ordering Location: [facility] Lab Received: 11/21/2020 02:26 PM Pathologist: Alexus Renee MD Specimen: Skin, right neck behind earlobe 12:13 PM [facility] DERMATOPATHOLOGY LABORATORY Final Diagnosis Specimen A. SKIN, right neck behind earlobe: BENIGN VERRUCOUS KERATOSIS, INFLAMED (L82.1) 12:13 PM [facility] DERMATOPATHOLOGY LABORATORY at [address] [facility] Clinical History R/O BCC. 12:13 PM [facility] DERMATOPATHOLOGY LABORATORY Gross Description Specimen A: Received is one formalin filled container labeled with the patient's name and designated right neck behind earlobe. The specimen consists of a shave biopsy measuring [id number]. Jar 0. 12:13 PM [facility] DERMATOPATHOLOGY LABORATORY Microscopic Description Specimen A. SKIN, right neck behind earlobe: Sections show hyperkeratosis, papillomatosis, hypergranulosis, and acanthosis. Inflammatory cells are present within the dermis. These histological findings can be seen in a verruca vulgaris or a seborrheic keratosis. 12:13 PM [facility] DERMATOPATHOLOGY LABORATORY Disclaimer An external and internal positive and negative controls are appropriate for the histochemical, immunohistochemical and immunofluorescence stain(s) in this case (if any), except where stated explicitly. The performance characteristics of the stain(s) cited in this report were developed and its performance characteristic determined by the Dermatopathology Laboratory at [facility], directed by Dr. Germain Morales. These tests need not be, and therefore are not, approved by the [place] Food and Drug Administration. The tests are used for clinical purposes. Billing Codes Specimen Charges Stain Charges 86558 1 12:13 PM [facility] DERMATOPATHOLOGY LABORATORY Embedded Images 12:13 PM [facility] DERMATOPATHOLOGY LABORATORY Pathology/Cytolog y TISSUE SPECIMEN FROM SKIN / Unknown 11/20/2020 11/21/2020 2:26 PM [facility] Harsh Traylor MD LAB - PATHOLOGY/CYTOLOGY ORD ERABLES Final Result DERMATOPATHOLOGY LABORATORY [facility] - Department of Dermatology [facility] Medicine [address] [place] [address], [address] [phone] documented in this encounter Visit Diagnoses Not on filedocumented in this encounter Additional Health Concerns Infection Onset Date Last Indicated Resolved Time MRSA 08/20/2017 08/20/2017 documented as of this encounter Care Teams Svp Group Director Relationship Specialty Start Date End Date Stuart Harrison MD PCP - General Family Medicine 01/12/12 Celi Olea, RN Registered Nurse 08/20/17 Maribel Benavidez, RN Registered Nurse 10/08/17 documented as of this encounter
--- OUTSIDE RECORDS SUMMARY | 2025-03-21 21:32 | XMS_ITS | Continuity of Care Document ---
Author Organization [facility] Address [address] [place] [address] Phone Care Team Providers Care Finished Cigar Maker Name Role Phone Ricardo Johnson Unavailable Unavailable [...] Copied on Encounter Office/outpat ient Visit, Est [facility], [address], [place], [place], [address], [place] tel:[phone] [facility] No Information 0 Alex Silva. [address] , [address], [place], [address], [place]. tel:[phone] Referring Provider: Ricardo Daniel, [address], [place], [place], [facility]. tel:[phone] [facility], [address], [place], [place], [address], [place] tel:[phone] [facility] No Information Oct-0 6-201 0 Alex Silva. [facility] [address] , [address], [place], [place], [facility], [place]. tel:[phone] Referring Provider: Ricardo Daniel, [address], [place], [facility]. tel:[phone] [facility], [address], [place], [place], [address], [place] tel:[phone] [facility] No Information Jul-2 7-201 0 Alex Silva. [facility] , [address], [place], [place], [facility], [place]. tel:[phone] Referring Provider: Ricardo Daniel, [address], [place], [facility]. tel:[phone] [facility], [address], [place], [place], [address], [place] tel:[phone] [facility] No Information May-2 2-201 0 Alex Silva. [facility] , [address], [place], [facility], [place]. tel:[phone] [facility], [address], [place], [place], [address], [place] tel:[phone] [facility] No Information May-2 2-201 0 [employer] . [address] [facility], [address], [place], [place], [address], [place]. tel:[phone] Referring Provider: Ricardo Daniel [address] [facility] [address], [place], [address]. tel:[phone] boyer Provider: Evelia Hickey, [address] [place], [address]. tel:[phone] [facility], [address], [place], [place], [address], tel:[phone] [facility] No Information 0-200 9 Morales OD Erick. [address] [facility] [address] , [address], [place], [address], [place]. tel:[phone] [facility], [address], [place], [place], [address], [place] tel:[phone] [facility] No Information 8-200 8 Shaffer Amparo. [address] [facility] , [address], [place], [address], . tel:[phone] Family History Family Member Type Diagnosis Age At Onset No Information Payers Payer name Insurance type Covered constitution party ID Authoriza tion(s) [place] [id number] Social History Type Description Quantity Date Captured [...]
--- OUTSIDE RECORDS SUMMARY | 2025-03-21 21:32 | XMS_ITS | Clinical Summary ---
Author Organization [facility] Address [address] [facility] [place] [address] Care Team Providers Care Measurement Specialist Name Role Phone Stuart Harrison MD Primary Care Provider [phone] Celi Olea RN Unavailable Unavailable Maribel Benavidez RN Unavailable Unavailable Source Comments [facility],non-owned Affiliates and Associated Physician Practices is amultiple site organization consisting of ambulatory clinics and hospital sitesin [place], [place], [place] and [place]. This disclosure is being madepursuant to the Care Everywhere program and may not contain all information available regarding this patient. Last updated 18.[facility] Allergies Active Allergy Reactions Criticality Noted Date [...] VITAMINS PO) 1 tablet once daily Active Eaton-3 Fatty Acids (FISH OIL BURP-LESS) 1200 MG [...] 27.5 MCG/SPRAY nasal sprayIndication s:Seasonal Allergic Rhinitis Lyons 1 spray into each nostril 2 times [...] (OCEAN NASAL SPRAY) 0.65 % nasal spray Lyons 3 sprays into each nostril every 3 [...] on file Legal Sex Male 11:30 AM HEDGE FUND TRADER Gender Identity Not on file Sexual Orientation Not on file Last Filed Vital Signs Vital Sign Reading Time Taken Comments Blood Pressure 143/77 10/08/2017 5:27 PM HEDGE FUND TRADER Pulse 56 10/08/2017 5:27 PM HEDGE FUND TRADER Temperature 36.2 C (97.1 F) 10/08/2017 4:16 PM HEDGE FUND TRADER Respiratory Rate 16 10/08/2017 5:27 PM HEDGE FUND TRADER Oxygen Saturation 98% 10/08/2017 5:27 PM HEDGE FUND TRADER Inhaled Oxygen Concentration 40% 10/08/2017 1 :38 PM HEDGE FUND TRADER Weight 74.8 kg (165 lb) 02/18/2021 12:19 [...] Date Last Indicated MRSA 08/20/2017 08/20/[address] [facility] MANAGED MEDICARE ADV [facility] MANAGED MEDICARE ADV Care Teams Measurement Specialist Relationship Specialty Start Date End Date Stuart Harrison MD PCP - General Family Medicine 01/12/12 Celi Olea RN Registered Nurse 08/20/17 Maribel Benavidez, RN Registered Nurse 10/08/17
--- OUTSIDE RECORDS SUMMARY | 2025-03-21 21:33 | XMS_ITS | Clinical Summary ---
Author Organization [facility] Address [address] [place] [address] Phone Care Team Providers Care Project Economist Name Role Phone Qian Morales MD Primary Care Provider [phone] Allergies Active Allergy Reactions Criticality Noted Date Comments Colesevelam Hcl 07/26/2019 Ezetimibe 07/26/2019 Medications Nebivolol HCl (BYSTOLIC) 20 MG tablet 1 tab/cap qday 0 12/15/2016 Active Red Yeast Rice Extract 600 MG capsule 1 tab/cap qday 05/25/2012 Active Ascorbic Acid (VITAMIN C) 500 MG tablet Take 500 mg by mouth Active aspirin 325 MG tablet Take 325 mg by mouth daily Active Fulton-3 Fatty Acids (FISH OIL BURP-LESS) 1200 MG [...] on file Legal Sex Male 7:37 AM [facility] Gender Identity Not on file Sexual Orientation [...] (Season Ended) 2025 11/19/19 16, 11/20/2014 Insurance [facility] MEDICARE Care Teams Project Economist Relationship Specialty Start Date End Date Qian Morales MD [address] [place] [phone] PCP - General Internal Medicine 03/24/22
--- OUTSIDE RECORDS SUMMARY | 2025-03-21 21:33 | XMS_ITS | Referral Summary ---
Author Organization [facility] Address [address] [place] [address] Care Team Providers Care Precision Thread Grinder Operator Name Role Phone Keturah Lozano RN Unavailable [...] (01/14/2020): Added automatically from request for surgery [id number] Social History Tobacco Use Types Packs/Day Years [...] Comments Blood Pressure 146/67 11/24/2024 11:15 AM BUSINESS PLANNING ANALYST Pulse 53 11/24/2024 11:30 AM BUSINESS PLANNING ANALYST Temperature 36.6 C (97.8 F) 11/24/2024 11:00 AM BUSINESS PLANNING ANALYST Respiratory Rate 26 11/24/2024 11:30 AM BUSINESS PLANNING ANALYST Oxygen Saturation 98% 11/24/2024 11:30 AM BUSINESS PLANNING ANALYST Inhaled Oxygen Concentration - - Weight 70 kg (154 lb 5.2 oz) 11/24/2024 8:38 AM BUSINESS PLANNING ANALYST Height 162.6 cm (5' 4 ) 11/24/2024 8:38 AM BUSINESS PLANNING ANALYST Body Mass Index 26.49 11/24/2024 8:38 AM BUSINESS PLANNING ANALYST Plan of Treatment Not on file Insurance [facility] MEDICARE UHC MEDICARE ADVANTAGE [employer] MEDICARE Advance Directives For more information, please contact: [phone] Documents on File Type Date Recorded Patient Seismograph Computer Expl anation ADVANCE DIRECTIVE 11/24/2024 7:08 AM Power of Liquor Inspector-Medical * Full Code (Latest Code Status on File) Date Activated Date Inactivated Comments 03/29/2024 9:50 AM 03/29/2024 4:07 PM Care Teams Precision Thread Grinder Operator Relationship Specialty Start Date End Date Qian Morales MD PCP - General Family Medicine 03/21/24 Keturah Loznao, LINA Registered Nurse 03/10/18 Ian López [place] [address] [place] [address] Consulting Physician Urology 11/16/24
--- OUTSIDE RECORDS SUMMARY | 2025-03-21 21:33 | XMS_ITS | Encounter Summary ---
Author Organization [facility] Address [address] [place] [address] Phone Care Team Providers Care Machine Clothing Man Name Role Phone Qian Morales MD Primary Care Provider [phone] Reason for Visit * Reason Comments Med Refill Encounter Details Date Type Department Care Team (Late st Contact Info) Description 04/02/2019 Refill [facility] Nephrology and Hypertension [address] [facility], [address] [place] [address] Luis Carlos Vincent MD [address] [facility], [address] [facility] [place] [address] Social History Tobacco Use Types Packs/Day Years [...] on filedocumented in this encounter Care Teams Machine Clothing Man Relationship Specialty Start Date End Date Qian Morales MD [address] [place] [phone] PCP - General Internal Medicine 03/24/22 documented as of this encounter
[2025-03-21 21:34] VITALS: BP 142/67; PULSE 93; RESP 16; TEMP 36.4; O2SAT 99
--- OUTSIDE RECORDS SUMMARY | 2025-03-21 22:41 | XMS_ITS | Clinical Summary ---
Author Organization [facility] Address [address] [place] [address] Care Team Providers Care Water Hydrant Installer Name Role Phone Keturah Lozano RN Unavailable Un available Qian Morales MD Primary Care Provider [phone] Ian López MD Unavailable Allergies Active Allergy [...] (01/14/2020): Added automatically from request for surgery [id number] Surgical History Surgery Date Site/Laterality Comments CATARACT [...] Comments Blood Pressure 146/67 11/24/2024 11:15 AM RADIATION ONCOLOGY THERAPIST Pulse 53 11/24/2024 11:30 AM RADIATION ONCOLOGY THERAPIST Temperature 36.6 C (97.8 F) 11/24/2024 11:00 AM RADIATION ONCOLOGY THERAPIST Respiratory Rate 26 11/24/2024 11:30 AM RADIATION ONCOLOGY THERAPIST Oxygen Saturation 98% 11/24/2024 11:30 AM RADIATION ONCOLOGY THERAPIST Inhaled Oxygen Concentration - - Weight 70 kg (154 lb 5.2 oz) 11/24/2024 8:38 AM RADIATION ONCOLOGY THERAPIST Height 162.6 cm (5' 4 ) 11/24/2024 8:38 AM RADIATION ONCOLOGY THERAPIST Body Mass Index 26.49 11/24/2024 8:38 AM RADIATION ONCOLOGY THERAPIST Plan of Treatment Health Maintenance Due Date [...] Pneumococcal vaccine 65+ Completed 03/24/2016, 10/03 Insurance [facility] MEDICARE UHC MEDICARE ADVANTAGE [facility] MEDICARE Advance Directives For more information, please contact: [phone] Documents on File Type Date Recorded Patient Teletype Installer Expl anation ADVANCE DIRECTIVE 11/24/2024 7:08 AM Power of Loss Prevention Officer-Medical * Full Code (Latest Code Status on File) Date Activated Date Inactivated Comments 03/29/2024 9:50 AM 03/29/2024 4:07 PM Care Teams Water Hydrant Installer Relationship Specialty Start Date End Date Qian Morales MD PCP - General Family Medicine 03/21/24 Keturah Lozano, LINA Registered Nurse 03/10/18 Ian López [place] [address] [place] [address] Consulting Physician Urology 11/16/24
--- OUTSIDE RECORDS SUMMARY | 2025-03-21 22:41 | XMS_ITS | Referral Summary ---
Author Organization [facility] Address [address] [place] [address] Care Team Providers Care Primary School Principal Name Role Phone Keturah Lozano RN Unavailable [...] (01/14/2020): Added automatically from request for surgery [id number] Social History Tobacco Use Types Packs/Day Years [...] Comments Blood Pressure 146/67 11/24/2024 11:15 AM RN TEACHER Pulse 53 11/24/2024 11:30 AM RN TEACHER Temperature 36.6 C (97.8 F) 11/24/2024 11:00 AM RN TEACHER Respiratory Rate 26 11/24/2024 11:30 AM RN TEACHER Oxygen Saturation 98% 11/24/2024 11:30 AM RN TEACHER Inhaled Oxygen Concentration - - Weight 70 kg (154 lb 5.2 oz) 11/24/2024 8:38 AM RN TEACHER Height 162.6 cm (5' 4 ) 11/24/2024 8:38 AM RN TEACHER Body Mass Index 26.49 11/24/2024 8:38 AM RN TEACHER Plan of Treatment Not on file Insurance [facility] MEDICARE UHC MEDICARE ADVANTAGE AETNA MEDICARE Advance Directives For more information, please contact: [phone] Documents on File Type Date Recorded Patient Superintendent Pier Expl anation ADVANCE DIRECTIVE 11/24/2024 7:08 AM Power of Display Designer-Medical * Full Code (Latest Code Status on File) Date Activated Date Inactivated Comments 03/29/2024 9:50 AM 03/29/2024 4:07 PM Care Teams Primary School Principal Relationship Specialty Start Date End Date Qian Morales MD PCP - General Family Medicine 03/21/24 Keturah Lozano, LINA Registered Nurse 03/10/18 Ian López [place] [address] [place] [address] Consulting Physician Urology 11/16/24
--- OUTSIDE RECORDS SUMMARY | 2025-03-21 22:41 | XMS_ITS | Clinical Summary ---
Author Organization [facility] Address [address] [place] [address] Phone Care Team Providers Care Starting Gate Driver Name Role Phone Qian Morales MD Primary Care Provider [phone] Allergies Active Allergy Reactions Criticality Noted Date Comments Colesevelam Hcl 07/26/2019 Ezetimibe 07/26/2019 Medications Nebivolol HCl (BYSTOLIC) 20 MG tablet 1 tab/cap qday 0 12/15/2016 Active Red Yeast Rice Extract 600 MG capsule 1 tab/cap qday 05/25/2012 Active Ascorbic Acid (VITAMIN C) 500 MG tablet Take 500 mg by mouth Active aspirin 325 MG tablet Take 325 mg by mouth daily Active Tebbetts-3 Fatty Acids (FISH OIL BURP-LESS) 1200 MG [...] on file Legal Sex Male 7:37 AM [facility] Gender Identity Not on file Sexual [...] (Season Ended) 2025 11/19/19 16, 11/20/2014 Insurance [facility] MEDICARE Care Teams Starting Gate Driver Relationship Specialty Start Date End Date Qian Morales MD [address] [place] [phone] PCP - General Internal Medicine 03/24/22
--- OUTSIDE RECORDS SUMMARY | 2025-03-21 22:41 | XMS_ITS | Encounter Summary ---
Author Organization [facility] Address [address] [facility] [place] [address] Care Team Providers Care Orchid Superintendent Name Role Phone Stuart Harrison MD Primary Care Provider [phone] Celi Olea RN Unavailable Unavailable Maribel Benavidez RN Unavailable Unavailable Encounter Details Date Type Department Care Team (Late st Contact Info) Description 03/07/2020 Lab Requisition [facility] [address] [facility], [place] [phone] Harsh Traylor MD [address] [place] [address] Social History Tobacco Use Types Packs/Day Years Used Date Smoking Tobacco: Never Smokeless Tobacco: Never Alcohol Use Standard Drinks/Week Comments Yes 0 (1 standard drink = 0.6 oz pur e alcohol) on occasion Sex and Gender Information Value Date Recorded Sex Assigned at Not on file Legal Sex Male 11:30 AM HELICOPTER ENGINEER Gender Identity Not on file Sexual Orientation Not on file documented as of this encounter Plan of Treatment Not on file documented as of this encounter Procedures Procedure Name Priority Date/Time Associated Diagnosis Comments DERMATOPATHOLOGY Routine 03/06/2020 12:0 0 AM CDT documented in this encounter Results * DERMATOPATHOLOGY (03/06/2020 12:00 AM CDT) Case Report Dermatopathology Report Case: [id number] Authorizing Provider: Harsh Traylor MD Collected: 03/06/2020 12:00 AM Ordering Location: [facility] DermPath Lab Received: 03/07/2020 11:56 AM [...] specimen consists of a punch biopsy measuring [id number], bisected. Jar 0. 0 2:43 PM CDT [...] characteristic determined by the Dermatopathology Laboratory at [facility], directed by Dr. Germain Morales. These tests need not be, and therefore are not, approved by the [place] Food and Drug Administration. The tests are used for clinical purposes. Billing Codes Specimen Charges Stain Charges 50037 1 0 2:43 PM CDT DERMATOPATHOLOGY LABORATORY Embedded Images 0 2:43 PM CDT DERMATOPATHOLOGY LABORATORY Pathology/Cytolog y TISSUE SPECIMEN FROM SKIN / Unknown 03/06/2020 03/07/2020 11:56 AM CDT Harsh Traylor MD LAB - PATHOLOGY/CYTOLOGY ORD ERABLES Final Result DERMATOPATHOLOGY LABORATORY [facility] - Department of Dermatology [address] [facility], [address] [place] [address], [facility] [phone] documented in this encounter Visit Diagnoses Not on filedocumented in this encounter Additional Health Concerns Infection Onset Date Last Indicated Resolved Time MRSA 08/20/2017 08/20/2017 documented as of this encounter Care Teams Orchid Superintendent Relationship Specialty Start Date End Date Stuart Harrison MD PCP - General Family Medicine 01/12/12 Celi Olae, RN Registered Nurse 08/20/17 Maribel Benavidez, LINA Registered Nurse 10/08/17 documented as of this encounter
--- OUTSIDE RECORDS SUMMARY | 2025-03-21 22:41 | XMS_ITS | Encounter Summary ---
Author Organization [facility] Address [address] [facility] [place] [address] Care Team Providers Care Upper Stitcher Name Role Phone Stuart Harrison MD Primary Care Provider [phone] Celi Olea RN Unavailable Unavailable Maribel Benavidez RN Unavailable Unavailable Encounter Details Date Type Department Care Team (Late st Contact Info) Description 11/21/2020 Lab Requisition [facility] [address] [facility] [place] [phone] Harsh Traylor MD [address] [place] [address] Social History Tobacco Use Types Packs/Day Years Used Date Smoking Tobacco: Never Smokeless Tobacco: Never Alcohol Use Standard Drinks/Week Comments Yes 0 (1 standard drink = 0.6 oz pur e alcohol) on occasion Sex and Gender Information Value Date Recorded Sex Assigned at Not on file Legal Sex Male 11:30 AM PROJECTION CAMERA OPERATOR Gender Identity Not on file Sexual Orientation Not on file documented as of this encounter Plan of Treatment Not on file documented as of this encounter Procedures Procedure Name Priority Date/Time Associated Diagnosis Comments DERMATOPATHOLOGY Routine 11/20/2020 12:0 0 AM PROJECTION CAMERA OPERATOR documented in this encounter Results * DERMATOPATHOLOGY (11/20/2020 12:00 AM PROJECTION CAMERA OPERATOR) Case Report Dermatopathology Report Case: [id number] Authorizing Provider: Harsh Traylor MD Collected: 11/20/2020 12:00 AM Ordering Location: [facility] DermPath Lab Received: 11/21/2020 02:26 PM Pathologist: Alexus Renee MD Specimen: Skin, right neck behind earlobe 12:13 PM [facility] DERMATOPATHOLOGY LABORATORY Final Diagnosis Specimen A. SKIN, right neck behind earlobe: BENIGN VERRUCOUS KERATOSIS, INFLAMED (L82.1) 12:13 PM [facility] DERMATOPATHOLOGY LABORATORY at [address] [facility] Clinical History R/O BCC. 12:13 PM [facility] DERMATOPATHOLOGY LABORATORY Gross Description Specimen A: Received is one formalin filled container labeled with the patient's name and designated right neck behind earlobe. The specimen consists of a shave biopsy measuring [id number]. Jar 0. 12:13 PM [facility] DERMATOPATHOLOGY LABORATORY Microscopic Description Specimen A. SKIN, right neck behind earlobe: Sections show hyperkeratosis, papillomatosis, hypergranulosis, and acanthosis. Inflammatory cells are present within the dermis. These histological findings can be seen in a verruca vulgaris or a seborrheic keratosis. 12:13 PM [facility] DERMATOPATHOLOGY LABORATORY Disclaimer An external and internal positive and negative controls are appropriate for the histochemical, immunohistochemical and immunofluorescence stain(s) in this case (if any), except where stated explicitly. The performance characteristics of the stain(s) cited in this report were developed and its performance characteristic determined by the Dermatopathology Laboratory at [facility], directed by Dr. Germain Morales. These tests need not be, and therefore are not, approved by the [place] Food and Drug Administration. The tests are used for clinical purposes. Billing Codes Specimen Charges Stain Charges 02027 1 12:13 PM [facility] DERMATOPATHOLOGY LABORATORY Embedded Images 12:13 PM [facility] DERMATOPATHOLOGY LABORATORY Pathology/Cytolog y TISSUE SPECIMEN FROM SKIN / Unknown 11/20/2020 11/21/2020 2:26 PM [facility] Harsh Traylor MD LAB - PATHOLOGY/CYTOLOGY ORD ERABLES Final Result DERMATOPATHOLOGY LABORATORY [facility] - Department of Dermatology [facility] Medicine [address] [place] [address], [address] [phone] documented in this encounter Visit Diagnoses Not on filedocumented in this encounter Additional Health Concerns Infection Onset Date Last Indicated Resolved Time MRSA 08/20/2017 08/20/2017 documented as of this encounter Care Teams Upper Stitcher Relationship Specialty Start Date End Date Stuart Harrison MD PCP - General Family Medicine 01/12/12 Celi Olea, RN Registered Nurse 08/20/17 Maribel Benavidez, RN Registered Nurse 10/08/17 documented as of this encounter
--- OUTSIDE RECORDS SUMMARY | 2025-03-21 22:41 | XMS_ITS | Clinical Summary ---
Author Organization [facility] Address [address] [facility] [place] [address] Care Team Providers Care Furnace Room Supervisor Name Role Phone Stuart Harrison MD Primary Care Provider [phone] Celi Olea RN Unavailable Unavailable Maribel Benavidez RN Unavailable Unavailable Source Comments [facility],non-owned Affiliates and Associated Physician Practices is amultiple site organization consisting of ambulatory clinics and hospital sitesin [place], [place], [place] and [place]. This disclosure is being madepursuant to the Care Everywhere program and may not contain all information available regarding this patient. Last updated 18.[facility] Allergies Active Allergy Reactions Criticality Noted Date [...] VITAMINS PO) 1 tablet once daily Active Omaha-3 Fatty Acids (FISH OIL BURP-LESS) 1200 MG [...] 27.5 MCG/SPRAY nasal sprayIndication s:Seasonal Allergic Rhinitis [place] 1 spray into each nostril 2 times [...] (OCEAN NASAL SPRAY) 0.65 % nasal spray [place] 3 sprays into each nostril every 3 [...] on file Legal Sex Male 11:30 AM REHABILITATION COORDINATOR Gender Identity Not on file Sexual Orientation Not on file Last Filed Vital Signs Vital Sign Reading Time Taken Comments Blood Pressure 143/77 10/08/2017 5:27 PM REHABILITATION COORDINATOR Pulse 56 10/08/2017 5:27 PM REHABILITATION COORDINATOR Temperature 36.2 C (97.1 F) 10/08/2017 4:16 PM REHABILITATION COORDINATOR Respiratory Rate 16 10/08/2017 5:27 PM REHABILITATION COORDINATOR Oxygen Saturation 98% 10/08/2017 5:27 PM REHABILITATION COORDINATOR Inhaled Oxygen Concentration 40% 10/08/2017 1 :38 PM REHABILITATION COORDINATOR Weight 74.8 kg (165 lb) 02/18/2021 12:19 [...] Date Last Indicated MRSA 08/20/2017 08/20/2017 Insurance [facility] MANAGED MEDICARE ADV [facility] MANAGED MEDICARE ADV Care Teams Furnace Room Supervisor Relationship Specialty Start Date End Date Stuart Harrison MD PCP - General Family Medicine 01/12/12 Celi Olea RN Registered Nurse 08/20/17 Maribel Benavidez, RN Registered Nurse 10/08/17
--- OUTSIDE RECORDS SUMMARY | 2025-03-21 22:41 | XMS_ITS | Encounter Summary ---
Author Organization [facility] Address [address] [place] [id number] Phone Care Team Providers Care Framing And Hanging Name Role Phone Qian Morales MD Primary Care Provider [phone] Reason for Visit * Reason Comments Med Refill Encounter Details Date Type Department Care Team (Late st Contact Info) Description 04/02/2019 Refill [facility] [address] [facility], [address] [place] [id number] Luis Carlos Vincent MD [address] [facility], [address] [facility] [place] [address] Social History Tobacco Use Types Packs/Day Years [...] on filedocumented in this encounter Care Teams Framing And Hanging Relationship Specialty Start Date End Date Qian Morales MD [address] [place] [id number] PCP - General Internal Medicine 03/24/22 documented as of this encounter
--- OUTSIDE RECORDS SUMMARY | 2025-03-21 22:41 | XMS_ITS | Continuity of Care Document ---
Author Organization [facility] Address [address] [place] [address] Phone Care Team Providers Care Embroiderer Name Role Phone Ricardo Johnson Unavailable Unavailable [...] Copied on Encounter Office/outpat ient Visit, Est [facility], [address], [place], [place], [id number], [place] tel:[phone] [facility] No Information 0 Alex Silva. [address] , [address], [place], [address], [place]. tel:[phone] Referring Provider: Ricardo Daniel, [address], [place], [place], [facility]. tel:[phone] [facility], [address], [place], [place], [id number], [place] tel:[phone] [facility] No Information Oct-0 6-201 0 Alex Silva. [facility] by [facility] [address] , [address], [place], [place], [facility], [place]. tel:[phone] Referring Provider: Ricardo Daniel, [address], [place], [place], [facility]. tel:[phone] [facility], [address], [place], [place], [id number], [place] tel:[phone] [facility] No Information Jul-2 7-201 0 Alex Silva. [facility] , [address], [place], [place], [facility], [place]. tel:[phone] Referring Provider: Ricardo Daniel, [address], [place], [place], [facility]. tel:[phone] [facility], [address], [place], [place], [address], [place] tel:[phone] [facility] No Information May-2 2-201 0 Alex Silva. Replaced by [facility] [address] [facility] , [address], [place], [place], [facility], [place]. tel:[phone] [facility], [address], [place], [place], [address], [place] tel:[phone] [facility] No Information May-2 2-201 0 [facility] [employer] . [address] [facility], [address], [place], [place], [id number], [place]. tel:[phone] Referring Provider: Ricardo Daniel [address] [facility] [address], [place], [address]. tel:[phone] boyer Provider: Evelia Hickey, [address] [place], [address]. tel:[phone] [facility], [address], [place], [place], [address], tel:[phone] [facility] No Information 0-200 9 Morales OD Erick. [address] [facility] , [address], [place], [address], [place]. tel:[phone] [facility], [address], [place], [place], [address], [place] tel:[phone] [facility] No Information 8-200 8 Shaffer Amparo. [address] [facility] , [address], [place], [address], . tel:[phone] Family History Family Member Type Diagnosis Age At Onset No Information Payers Payer name Insurance type Covered green party ID Authoriza tion(s) [place] [id number] Social History Type Description Quantity Date Captured [...]
--- OUTSIDE RECORDS SUMMARY | 2025-03-21 22:41 | XMS_ITS | Clinical Summary ---
Author Organization [facility] Address [address], [address] [address] Phone Care Team Providers Care Elementary Ell Teacher Name Role Phone Erick Santos DO Unavailable [phone] Bree Cisse MD Primary Care Provi [...] Capsule Take 5,000 Units by mouth. Active [place]-3 Fatty Acids (Fish Oil Burp-Less) 1200 MG [...] on file Legal Sex Male 4:45 PM INNER LAYER SCRUBBER TENDER Gender Identity Not on file Sexual Orientation Not on file Last Filed Vital Signs Vital Sign Reading Time Taken Comments Blood Pressure 138/70 10/04/2020 10:45 AM INNER LAYER SCRUBBER TENDER Pulse 49 10/04/2020 10:45 AM INNER LAYER SCRUBBER TENDER Temperature 36.3 C (97.3 F) 10/04/2020 10:45 AM INNER LAYER SCRUBBER TENDER Respiratory Rate 20 10/04/2020 10:45 AM INNER LAYER SCRUBBER TENDER Oxygen Saturation 98% 10/04/2020 10:45 AM INNER LAYER SCRUBBER TENDER Inhaled Oxygen Concentration - - Weight 74.9 kg (165 lb 3.2 oz) 10/04/2020 10:45 AM INNER LAYER SCRUBBER TENDER Height 167.6 cm (5' 6 ) 10/04/2020 10:45 AM INNER LAYER SCRUBBER TENDER Body Mass Index 26.66 10/04/2020 10:45 AM INNER LAYER SCRUBBER TENDER Plan of Treatment Health Maintenance Due Date [...] this topic Insurance MEDICARE C [facility] Care Teams Elementary Ell Teacher Relationship Specialty Start Date End Date Bree Cisse MD [address] [place] [address] PCP - General Family Medicine 07/24/20 Erick Santos DO Gastroenterology 11/22/15
[2025-03-21 22:54] VITALS: BP 135/75; PULSE 76; RESP 18; O2SAT 98
[2025-03-21 22:58] LABS: Basophils Percent Auto 0.2 % (0.2-1.2); Hematocrit 37.7 % (42.0-52.0); Hemoglobin 12.5 g/dL (14.0-18.0); Immature Granulocyte Absolute 0.01 K/mm3 (0.00-0.031); Immature Granulocyte Percent A 0.2 % (0-0.5); Lymphocytes Absolute Auto 0.47 K/mm3 (0.9-3.2); Lymphocytes Percent Auto 7.3 % (18.3-44.2); Mean Corpuscular HGB Conc 33.2 g/dl (32-36); Mean Corpuscular Hemoglobin 33.1 pg (26-34); Mean Corpuscular Volume 99.7 fl (80-100); Mean Platelet Volume 8.9 fl (7.4-10.4); Monocytes Absolute Auto 0.1 K/mm3 (0.1-0.6); Monocytes Percent Auto 1.4 % (2.6-8.5); Neutrophils Absolute Auto 5.8 K/mm3 (1.3-6.7); Neutrophils Percent Auto 90.9 % (45.5-73.1); Platelet Count Result 369 k/mm3 (150-375); Red Blood Count 3.78 M/mm3 (4.6-6.20); Red Cell Distribution Width 13.2 % (11.5-14.5); White Blood Count 6.4 K/mm3 (4.5-10.0)
[2025-03-21] MEDS: LACTATED RINGERS 1,000 ML 999 ML IV CONT (23:00)
[2025-03-21 23:08] LABS: Anion Gap 10 mmol/L (4-12); Blood Urea Nitrogen 29 mg/dL (9-20); Carbon Dioxide 20 mmol/L (22-30); Chloride 102 mmol/L (98-107); Estimated CRCL calculation 40 ml/min; Estimated Glomerular Filt Rate > 60; Glucose 237 mg/dL (65-110); Potassium 4.8 mmol/L (3.4-5.0); Sodium 132 mmol/L (137-145)
[2025-03-21 23:09] LABS: Estimated CRCL calculation 32 ml/min; Estimated Glomerular Filt Rate 48
[2025-03-21 23:12] LABS: INR 0.9
[2025-03-21 23:13] LABS: Partial Thromboplastin Time 25.9 Seconds (22.3-36.8)
--- NOTE | 2025-03-21 23:49 | ED_ITS ---
HPI - Extremity Problem General Chief complaint: Extremity Problem,Nontraumatic Stated complaint: procedure today-bilateral feet tingling Time Seen by Provider: 03/21/25 22:31 History of Present Illness HPI Narrative: Patient had had a prostate artery embolization earlier today with Dr Jose M JASMINE and patient started having some tingling to his great toe, now some tingling to bilateral feet, he called his Dr who told him to come to the ER for a CTA. Related Data Home Medications ?Medication ?Instructions ?Recorded ?Confirmed ?Last Taken ?Type acetaminophen 650 mg 650 mg PO BID 11/08/19 03/17/25 02/27/25 History tablet,extended release avanafil 200 mg tablet (Stendra) 200 mg PO WEEKLY 11/08/19 03/17/25 02/18/25 History multivitamin 1 tablet PO DAILY 11/08/19 03/17/25 02/27/25 History omega-3 fatty acids 1,000 mg 2,000 mg PO BID 07/30/22 03/17/25 02/27/25 History capsule (Fish Oil Concentrate) Balance Of Nature See Rx Instructions .Route .COMPLEX 08/08/22 03/17/25 02/27/25 History calcium phosphate-vitamin D3 250 2 tablet PO DAILY 06/09/24 03/17/25 02/27/25 History mg calcium-250 unit chewable tablet magnesium aspart,citrate,oxide mg PO .qd 12/15/24 03/17/25 02/27/25 History psyllium husk 0.52 gram capsule 0.52 g PO DAILY 12/15/24 03/17/25 02/27/25 History Allergies Allergy/AdvReac Type Severity Reaction Status Date / Time bee venom protein (honey bee) AdvReac Severe Swelling Verified 03/21/25 21:31 Review of Systems 2 Review of Systems: All systems reviewed & are unremarkable except as noted in HPI and below PMFSH Past Medical History Medical History Enlarged prostate Constipation IBS (irritable bowel syndrome) Lower abdominal pain Anemia Gas bloat syndrome GERD (gastroesophageal reflux disease) Overweight (BMI 25.0-29.9) BPH (benign prostatic hyperplasia) CKD (chronic kidney disease) stage 3, GFR 30-59 ml/min Hypertension History of hydrocele SANCHEZ (dyspnea on exertion) Dyslipidemia Dysuria Right axillary hidradenitis Syncope and collapse Ventricular ectopics Surgical History Surgical History History of carpal tunnel release History of back surgery Family History Family History Mother Hypertension Family history of arthritis Father Family history of dementia Malignant neoplasm of prostate Social History Social History Smoking status: Never smoker Tobacco type: cigarettes Second hand tobacco smoke exposure: No Smoking end date: 11/02/1961 Additional smoking assessment comments: PT STATES SMOKED VERY LITTLE IN 20'S FOR ABOUT A YR QUIT 1961 Alcohol intake: current Drinks per week: 0 Alcohol use details: ONE DRINK PER MONTH Substance use: never Substance use type: does not use Lack of Transportation: No Lack of Food: Never True Current Housing: I Have Housing Concerned About Future Housing: No Difficulty Paying Gas/Electric Bills: No Difficulty Paying for Meds: No Currently Unemployed: No Education: Master's Degree or Higher Living arrangements: with family Occupation/Education: retired Gender identity (if verbalized by the patient): Male Spiritual care concerns: No Exam 2 Narrative: EXAMINATION OF ORGAN SYSTEMS/BODY AREAS: Constitutional: Vital signs per nursing GENERAL:[No acute distress, non-toxic appearing.] HEAD: Normal with no signs of head trauma. EYES: EOMI, conjunctiva normal ENT: Hearing grossly intact LUNGS: Nonlabored breathing. HEART: [Regular rate and rhythm], strong DP pulses bilaterally ABD: [Soft], [nontender to palpation] EXT: Normal range of motion SKIN: [No rashes or lesions.] NEURO: [Alert and oriented x 3. Good strength bilateral lower extremities, ambulating. Sensation intact bilateral feet] PSYCH: Normal affect Course Vital Signs Vital signs: Vital Signs Temperature 97.6 F 03/21/25 21:34 Pulse Rate 93 03/21/25 21:34 Respiratory Rate 16 03/21/25 21:34 Blood Pressure 142/67 H 03/21/25 21:34 Pulse Oximetry 99 03/21/25 21:34 Oxygen Delivery Room Air 03/21/25 21:34 Temperature 97.6 F 03/21/25 21:34 Pulse Rate 88 03/22/25 00:29 Respiratory Rate 16 03/22/25 00:29 Blood Pressure 150/93 H 03/22/25 00:29 Pulse Oximetry 98 03/22/25 00:29 Oxygen Delivery Room Air 03/21/25 21:34 MDM - Extremity (Nontraumatic) MDM Narrative Medical decision making narrative: 84-year-old male with history of spinal fusion, prostate artery embolization earlier today with concern for new paresthesias to bilateral feet, presents here for CTA to ensure no vascular issue. He does understand that we do not have MRI or vascular surgery here. On exam he is very well-appearing, he states that the paresthesias have actually already been improving, and he has had paresthesias in the past due to his spine issues, on exam he is having normal motor strength to bilateral lower extremities, he does have sensation to his feet, and he has strong bilateral DP pulses and very warm feet with good capillary refill to toes. CTA obtained with findings of severe stenosis to multiple vessels with reconstitution, no signs of acute ischemia. No new spinal abnormality. I did discuss this with the vascular surgeon Dr. Segovia on the phone including the entire CT report, Dr. Segovia agrees patient stable for discharge from his standpoint with follow-up to him in the clinic tomorrow where they will go over the results. I did update patient and at bedside who are happy with this plan and they are given strict return precautions. Lab Data 03/21/25 22:52 03/21/25 23:07 Labs: Lab Results 03/21/25 03/21/25 Range/Units 22:52 23:07 WBC 6.4 (4.5-10.0) K/mm3 RBC 3.78 L (4.6-6.20) M/mm3 Hgb 12.5 L (14.0-18.0) g/dL Hct 37.7 L (42.0-52.0) % MCV 99.7 (80-100) fl MCH 33.1 (26-34) pg MCHC 33.2 (32-36) g/dl RDW 13.2 (11.5-14.5) % Plt Count 369 (150-375) k/mm3 MPV 8.9 (7.4-10.4) fl Immature Gran % (Auto) 0.2 (0-0.5) % Neut % (Auto) 90.9 H (45.5-73.1) % Lymph % (Auto) 7.3 L (18.3-44.2) % [place] % (Auto) 1.4 L (2.6-8.5) % Eos % (Auto) 0.0 (0-4.4) % Baso % (Auto) 0.2 (0.2-1.2) % Lymph # (Auto) 0.47 L (0.9-3.2) K/mm3 [place] # (Auto) 0.1 (0.1-0.6) K/mm3 Eos # (Auto) 0.0 (0-0.3) K/mm3 Baso # (Auto) 0.0 (0.0-0.1) K/mm3 Abs Immat Gran (auto) 0.01 (0.00-0.031) K/mm3 Absolute Neuts (auto) 5.8 (1.3-6.7) K/mm3 Absolute Nucleated RBC 0.000 (0.0-0.012) K/mm3 Nucleated RBC % 0.0 (0.0-0.2) % PT 13.0 (11.1-14.7) Seconds INR 0.9 APTT 25.9 (22.3-36.8) Seconds Sodium 132 L (137-145) mmol/L Potassium 4.8 (3.4-5.0) mmol/L Chloride 102 (98-107) mmol/L Carbon Dioxide 20 L (22-30) mmol/L Anion Gap 10 (4-12) mmol/L BUN 29 H D (9-20) mg/dL Creatinine 1.11 1.40 (0.7-1.3) mg/dL Estim Creat Clear Calc 40 32 ml/min Estimated GFR > 60 48 L (59 - ) Glucose 237 H (65-110) mg/dL Calcium 9.0 (8.4-10.2) mg/dL Discharge Plan Discharge Clinical Impression: Paresthesia of foot, bilateral Patient Disposition: Home Condition: Stable Instructions: Paresthesia (ED) Additional Instructions: Please follow-up with your back surgeon and vascular surgeon tomorrow, if you have any further issues such as new numbness or pain or coolness to your feet or severe back pain or difficulty walking, you can always return to the emergency room. Patient Language: Marshallese Prescriptions: No Action multivitamin Tablet 1 tablet PO DAILY Patient Comments: QAM Stendra 200 mg tablet 200 mg PO WEEKLY Patient Comments: ON SATURDAYS acetaminophen 650 mg tablet extended release 650 mg PO BID magnesium aspart,citrate,oxide 400 mg magnesium capsule PO .qd psyllium husk 0.52 gram capsule 0.52 g PO DAILY calcium phosphate-vitamin D3 250 mg calcium- 250 unit tablet,chewable 2 tablet PO DAILY clotrimazole 1 % solution 1 applic topical . q.h.s. Qty: 30 3RF Rx Instructions: put 4 drops in each ear q.h.s. and leave ear up towards the ceiling for 20 seconds afterwards Balance Of Nature See Rx Instructions .ROUTE .COMPLEX Rx Instructions: 2 TABLES ONE FRUIT, ONE VEG TID fluticasone propionate 50 mcg/actuation spray,suspension 1 spray NASAL BID Qty: 16 0RF Rx Instructions: administer into each nostril omega-3 fatty acids [Fish Oil Concentrate] 1,000 mg capsule 2,000 mg PO BID esomeprazole magnesium 40 mg capsule,delayed release(DR/EC) See Rx Instructions .ROUTE .COMPLEX Qty: 90 3RF Dose Instruction: TAKE ONE CAPSULE BY MOUTH ONCE DAILY FOR 30 DAYS Rx Instructions: TAKE ONE CAPSULE BY MOUTH ONCE DAILY FOR 30 DAYS Repatha SureClick 140 mg/mL pen injector See Rx Instructions .ROUTE .COMPLEX Qty: 6 3RF Dose Instruction: INJECT 140 MG SUBCUTANEOUSLY EVERY 2 WEEKS Rx Instructions: INJECT 140 MG SUBCUTANEOUSLY EVERY 2 WEEKS hydralazine 25 mg tablet See Rx Instructions .ROUTE .COMPLEX Qty: 180 2RF Dose Instruction: TAKE 1 TABLET BY MOUTH TWICE A DAY Rx Instructions: TAKE 1 TABLET BY MOUTH TWICE A DAY lisinopril 20 mg tablet See Rx Instructions .ROUTE .COMPLEX Qty: 180 2RF Dose Instruction: TAKE 1 TABLET BY MOUTH TWICE A DAY Rx Instructions: TAKE 1 TABLET BY MOUTH TWICE A DAY amlodipine 5 mg tablet See Rx Instructions .ROUTE .COMPLEX Qty: 90 2RF Dose Instruction: TAKE 1 TABLET BY MOUTH EVERY DAY Rx Instructions: TAKE 1 TABLET BY MOUTH EVERY DAY nebivolol 20 mg tablet See Rx Instructions .ROUTE .COMPLEX Qty: 90 2RF Dose Instruction: TAKE 1 TABLET BY MOUTH EVERY DAY Rx Instructions: TAKE 1 TABLET BY MOUTH EVERY DAY sodium chloride 1,000 mg tablet,soluble See Rx Instructions .ROUTE .COMPLEX Qty: 60 6RF Dose Instruction: TAKE 1 TABLET BY MOUTH TWICE A DAY Rx Instructions: TAKE 1 TABLET BY MOUTH TWICE A DAY Follow-up/Referrals: Qian Morales MD [Primary Care Provider] -
[2025-03-22 00:29] VITALS: BP 150/93; PULSE 88; RESP 16; O2SAT 98
[2025-03-22 01:14] VITALS: BP 145/76; PULSE 79; RESP 17; TEMP 36.8; O2SAT 97
[2025-03-22 01:15] VITALS: BP 145/76; PULSE 79; RESP 17; TEMP 36.8; O2SAT 97
== END 2025-03-22 01:19 | disposition home or self-care (01) ==
PROVIDERS: Emergency Provider Emergency Medicine; PCP Family Medicine
DX: R20.2 Paresthesia of skin (principal); Z98.890 Other specified postprocedural states; I12.9 Hypertensive chronic kidney disease with stage 1 through stage 4 chronic kidney disease, or unspecified chronic kidney disease; N18.30 Chronic kidney disease, stage 3 unspecified; E78.5 Hyperlipidemia, unspecified; E66.3 Overweight; Z68.25 Body mass index [BMI] 25.0-25.9, adult; N40.0 Benign prostatic hyperplasia without lower urinary tract symptoms; K58.1 Irritable bowel syndrome with constipation; K21.9 Gastro-esophageal reflux disease without esophagitis; Z98.1 Arthrodesis status; Z87.891 Personal history of nicotine dependence; Z79.899 Other long term (current) drug therapy; K44.9 Diaphragmatic hernia without obstruction or gangrene; K20.90 Esophagitis, unspecified without bleeding; K29.70 Gastritis, unspecified, without bleeding; R93.41 Abnormal radiologic findings on diagnostic imaging of renal pelvis, ureter, or bladder; I70.1 Atherosclerosis of renal artery; K55.1 Chronic vascular disorders of intestine; I70.203 Unspecified atherosclerosis of native arteries of extremities, bilateral legs
CPT/HCPCS: 36415; 75635; 80048; 85025; 85610; 85730; 96360; 99284; J7120; Q9967

== ENCOUNTER 2025-09-11 15:53 | Emergency (ER) | payer MEDICARE, SELFPAY ==
[2025-09-11 16:02] VITALS: BP 139/69; PULSE 62; RESP 16; TEMP 36.2; O2SAT 100
--- NOTE | 2025-09-11 16:30 | ED.UPPEXIN ---
HPI - Extremity Injury (Upper) General Chief Complaint: Extremity Injury, Upper Stated Complaint: Left shoulder pain Source: patient, RN notes reviewed and old records reviewed Mode of arrival: ambulatory Limitations: no limitations History of Present Illness HPI narrative: 84 year old male presents to express car with complaints of pain to his left shoulder since last night denies any recent injury to his left shoulder. Patient reports that he has torn rotator cuff for the past 5 years and has just dealt with it has no pain at rest but reports that pain is 9-10 with movement of his left shoulder. Patient has large bruise to his left upper arm which measures [id number] and is dark purple in color, states he is concerned for bleeding, patient does not take any daily blood thinners. Patient has history of some decreased kidney function, taking Tylenol for his pain. MD complaint: injury to: left and shoulder (denies any recent known injury) Onset (ago): day(s) (since last night) Other injuries: none Severity: moderate Treatments prior to arrival: other (Tylenol) Related Data Home Medications ?Medication ?Instructions ?Recorded ?Confirmed ?Last Taken ?Type acetaminophen 650 mg 650 mg PO BID 11/08/19 09/07/25 02/27/25 History tablet,extended release avanafil 200 mg tablet (Stendra) 200 mg PO WEEKLY 11/08/19 09/07/25 02/18/25 History multivitamin 1 tablet PO DAILY 11/08/19 09/07/25 02/27/25 History omega-3 fatty acids 1,000 mg 2,000 mg PO BID 07/30/22 09/07/25 02/27/25 History capsule (Fish Oil Concentrate) Balance Of Nature See Rx Instructions .Route .COMPLEX 08/08/22 09/07/25 02/27/25 History calcium phosphate-vitamin D3 250 2 tablet PO DAILY 06/09/24 09/07/25 02/27/25 History mg calcium-250 unit chewable tablet psyllium husk 0.52 gram capsule 0.52 g PO DAILY 12/15/24 09/07/25 02/27/25 History ofloxacin 0.3 % eye drops 4 drp otic (ear) QHS 08/03/25 09/07/25 Unknown History Allergies Allergy/AdvReac Type Severity Reaction Status Date / Time bee venom protein (honey bee) AdvReac Severe Swelling Verified 09/11/25 16:14 Review of Systems Review of Systems: CONSTITUTIONAL: Denies fever, chills, or sweats. EYES: Denies visual changes, redness, or discharge. ENT: Denies rhinorrhea, congestion, sore throat, or otalgia. CARDIOVASCULAR: Denies chest pain, palpitations, or edema. RESPIRATORY: Denies cough or dyspnea. GASTROINTESTINAL: Denies abdominal pain, nausea, vomiting, or diarrhea. GENITOURINARY: Denies dysuria or hematuria. SKIN: Denies rash or itching.has large purple bruise to the left upper arm reports no known injury MUSCULOSKELETAL: Denies back pain,positive for left shoulder joint pain, or myalgia. NEUROLOGIC: Denies headache, numbness, or weakness. PSYCHIATRIC: Denies anxiety or depression. All systems reviewed & are unremarkable except as noted in HPI and below PMFSH Past Medical History Medical History Prostate atrophy Enlarged prostate Constipation IBS (irritable bowel syndrome) Lower abdominal pain Anemia Gas bloat syndrome GERD (gastroesophageal reflux disease) Overweight (BMI 25.0-29.9) BPH (benign prostatic hyperplasia) CKD (chronic kidney disease) stage 3, GFR 30-59 ml/min Hypertension History of hydrocele SANCHEZ (dyspnea on exertion) Dyslipidemia Dysuria Right axillary hidradenitis Syncope and collapse Ventricular ectopics Surgical History Surgical History History of carpal tunnel release History of back surgery Family History Family History Mother Hypertension Family history of arthritis Father Family history of dementia Malignant neoplasm of prostate Social History Social History Tobacco type: cigarettes Second hand tobacco smoke exposure: No Smoking end date: 11/02/1961 Additional smoking assessment comments: PT STATES SMOKED VERY LITTLE IN 20'S FOR ABOUT A YR QUIT 1961 Alcohol intake: current Drinks per week: 0 Alcohol use details: ONE DRINK PER MONTH Substance use: never Substance use type: does not use Lack of Transportation: No Lack of Food: Never True Current Housing: I Have Housing Concerned About Future Housing: No Difficulty Paying Gas/Electric Bills: No Difficulty Paying for Meds: No Currently Unemployed: No Education: Master's Degree or Higher Living arrangements: with family Occupation/Education: retired Gender identity (if verbalized by the patient): Male Spiritual care concerns: No Comments At time of signature, agree with nursing past medical, surgical, social and family history. There is no relevant family history pertinent to the presenting complaint Exam Narrative: GENERAL: Well-appearing, well-nourished, and in no acute distress. HEAD: Normocephalic, atraumatic. EYES: PERRLA and EOMI. ENT: Nares clear, no rhinorrhea or epistaxis. Mucous membranes moist.TM's normal with dull light reflex. throat pink with no swelling NECK: Supple. no lymphadenopathy CHEST: Clear to auscultation. No respiratory distress. no cough noted SAO2 100% on room air HEART: Regular rate and rhythm. No murmur heard. Normal peripheral pulses. ABDOMEN: Soft, nontender, nondistended, normal active bowel sounds. EXTREMITIES: Normal range of motion. No edema.Patient has pain to his left shoulder increased since last night reports history of torn rotator cuff for the past 5 years, no pain at rest, decreased ROM left shoulder with pain with movement. Patient has large bruise to the left upper arm measuring 8cm X 5 cm with no known recent injury. Patient taking Tylenol for pain only. SKIN: Warm, dry, no rash. NEURO: No focal deficits. Alert and oriented x3. Course Course Emergency Course: Patient is aware of diagnosis, understands and agrees to treatment plan.? Anticipatory guidance given.? Patient agrees to follow-up as directed and is aware of reasons to seek care at the emergency department. Portions of this record may have been created with voice recognition software Level of Care: Express Care Visit Vital Signs Vital signs: Vital Signs Temperature 36.2 C L 09/11/25 16:02 Pulse Rate 62 09/11/25 16:02 Respiratory Rate 16 09/11/25 16:02 Blood Pressure 139/69 09/11/25 16:02 Pulse Oximetry 100 09/11/25 16:02 Temperature 36.2 C L 09/11/25 16:02 Pulse Rate 62 09/11/25 16:02 Respiratory Rate 16 09/11/25 16:02 Blood Pressure 139/69 09/11/25 16:02 Pulse Oximetry 100 09/11/25 16:02 Reviewed MDM - Extremity Injury (Upper) Differential Diagnosis Differential diagnosis: Likely other (pain to left shoulder, exacerbation of chronic pain left shoulder, bruise left upper arm) Medical Records Attestation: I reviewed the patient's medical records. Lab Data Attestation: I reviewed the patient's lab results. Critical Care Time Critical Care Time Critical Care Time: No Discharge Plan Discharge Clinical Impression: Left shoulder pain Patient Disposition: Home Condition: Stable Instructions: Antibiotic Form, Shoulder Pain (ED) Additional Instructions: continue your Tylenol for your pain as ordered Voltaren ointment apply to shoulder and upper arm 4 times daily Follow-up with orthopedic surgeon for further evaluation Follow-up with PCP if further problems or concerns Ice to the area 20-30 minutes 4-6 times a day Elevate above heart If your symptoms persist, change or worsen significantly before you can contact your personal physician then please, without delay, go to the emergency department for further evaluation. Follow-up with PCP in 7-10 days or sooner if needed Follow up with PCP soon in regards to your blood pressure which is elevated above threshold for referral. Blood pressure above 120/80 may indicate pre-hypertension.139/69 Patient Language: Bruneian Prescriptions: New diclofenac sodium [Voltaren Arthritis Pain] 1 % gel 2 g topical QID Qty: 100 0RF Rx Instructions: apply to left shoulder and upper arm No Action multivitamin Tablet 1 tablet PO DAILY Patient Comments: QAM Stendra 200 mg tablet 200 mg PO WEEKLY Patient Comments: ON SATURDAYS acetaminophen 650 mg tablet extended release 650 mg PO BID psyllium husk 0.52 gram capsule 0.52 g PO DAILY calcium phosphate-vitamin D3 250 mg calcium- 250 unit tablet,chewable 2 tablet PO DAILY ofloxacin 0.3 % drops 4 drp otic (ear) QHS Balance Of Nature See Rx Instructions .ROUTE .COMPLEX Rx Instructions: 2 TABLES ONE FRUIT, ONE VEG TID fluticasone propionate 50 mcg/actuation spray,suspension 1 spray NASAL BID Qty: 16 0RF Rx Instructions: administer into each nostril omega-3 fatty acids [Fish Oil Concentrate] 1,000 mg capsule 2,000 mg PO BID esomeprazole magnesium 40 mg capsule,delayed release(DR/EC) See Rx Instructions .ROUTE .COMPLEX Qty: 90 3RF Dose Instruction: TAKE ONE CAPSULE BY MOUTH ONCE DAILY FOR 30 DAYS Rx Instructions: TAKE ONE CAPSULE BY MOUTH ONCE DAILY FOR 30 DAYS lisinopril 20 mg tablet See Rx Instructions .ROUTE .COMPLEX Qty: 180 2RF Dose Instruction: TAKE 1 TABLET BY MOUTH TWICE A DAY Rx Instructions: TAKE 1 TABLET BY MOUTH TWICE A DAY amlodipine 5 mg tablet See Rx Instructions .ROUTE .COMPLEX Qty: 90 2RF Dose Instruction: TAKE 1 TABLET BY MOUTH EVERY DAY Rx Instructions: TAKE 1 TABLET BY MOUTH EVERY DAY nebivolol 20 mg tablet See Rx Instructions .ROUTE .COMPLEX Qty: 90 2RF Dose Instruction: TAKE 1 TABLET BY MOUTH EVERY DAY Rx Instructions: TAKE 1 TABLET BY MOUTH EVERY DAY sodium chloride 1,000 mg tablet,soluble See Rx Instructions .ROUTE .COMPLEX Qty: 60 6RF Dose Instruction: TAKE 1 TABLET BY MOUTH TWICE A DAY Rx Instructions: TAKE 1 TABLET BY MOUTH TWICE A DAY Repatha SureClick 140 mg/mL pen injector See Rx Instructions .ROUTE .COMPLEX Qty: 2 11RF Dose Instruction: INJECT 140 MG SUBCUTANEOUSLY EVERY 2 WEEKS Rx Instructions: INJECT 140 MG SUBCUTANEOUSLY EVERY 2 WEEKS hydralazine 25 mg tablet See Rx Instructions .ROUTE .COMPLEX Qty: 180 2RF Dose Instruction: TAKE 1 TABLET BY MOUTH TWICE A DAY Rx Instructions: TAKE 1 TABLET BY MOUTH TWICE A DAY Follow-up/Referrals: Andrew,MD Qian [Primary Care Provider, [facility]] Time of Disposition: 16:47 Quality Rianna Coma Scale Eyes: Open Verbal: Oriented and Alert Motor: Follows Commands Boyce Coma Total Score: 15
== END 2025-09-11 16:52 | disposition home or self-care (01) ==
PROVIDERS: Emergency Provider Registered Nurse; PCP Family Medicine
DX: M25.512 Pain in left shoulder (principal); I12.9 Hypertensive chronic kidney disease with stage 1 through stage 4 chronic kidney disease, or unspecified chronic kidney disease; N18.30 Chronic kidney disease, stage 3 unspecified; N40.0 Benign prostatic hyperplasia without lower urinary tract symptoms; E78.5 Hyperlipidemia, unspecified; K21.9 Gastro-esophageal reflux disease without esophagitis; Z87.891 Personal history of nicotine dependence
CPT/HCPCS: 99213; G0463